=== PATIENT | female | born 1970 | race Caucasian/White ===

== ENCOUNTER 2016-11-14 09:59 | Inpatient (IN) ==
[2016-11-14] MEDS ORDERED: Aspirin 81 MG TAB.CHEW PO ONE (10:35)
[2016-11-14] MEDS ORDERED: Nitroglycerin 0.4 MG TAB.SUBL SL ONE (10:35)
--- NOTE | 2016-11-14 10:57 | Emergency Department Note ---
Disposition Clinical Impression: NSTEMI (non-ST elevated myocardial infarction) Disposition: Admitted As Inpatient Condition: Good General Adult HPI - General Stated complaint: Chest discomfort Time Seen by Provider: 11/14/16 10:05 Source: patient Limitations: no limitations Nursing Notes Reviewed: Yes Vital Signs Reviewed: Yes - History of Present Illness HPI Narrative: Patient here for evaluation of what she calls cardiac symptoms as these symptoms are previous to her previous heart attack that required 2 cardiac stents placed a year and a half ago by Dr. el. Patient states 2 days ago she began feeling fatigued. Yesterday the patient began experiencing some chest discomfort that she is unable to otherwise describe that is worse when she lays down. Patient has maxillary sinus pain that radiates throughout the jaw and lower neck. Patient has a positive family history of multiple family members having MIs in their early 40s as well as positive smoking history positive diabetes positive obesity positive hypertension positive hypercholesterolemia. Patient's most significant pain was last night prior to going to bed. Patient took 3 nitroglycerin over the course of an hour and a half that did relieve her pain to the point that she was able to sleep. Patient has continued pain at this point. Patient states her biggest problem last time was that she is stubborn and does not like to come in and waited too long before presenting. Pain Scale: 4 - Related Data Home Medications Medication Instructions Recorded Confirmed Alprazolam [Xanax 1 MG Tablet] 1 mg PO QID PRN 11/14/16 11/14/16 Aspirin 81 mg PO DAILY 11/14/16 11/14/16 Carvedilol [Coreg] 6.25 mg PO BID 11/14/16 11/14/16 Celecoxib [Celebrex] 200 mg PO DAILY 11/14/16 11/14/16 Clopidogrel [Plavix] 75 mg PO DAILY 11/14/16 11/14/16 Duloxetine [Cymbalta] 30 mg PO DAILY 11/14/16 11/14/16 Ergocalciferol (VITAMIN D2) 50,000 unit PO WE 11/14/16 11/14/16 [Vitamin D2] Fish Oil/Dha/Epa [Fish Oil 1,200 1 each PO DAILY 11/14/16 11/14/16 mg Fish Oil] Furosemide [Lasix] 20 mg PO DAILY 11/14/16 11/14/16 GlipiZIDE XL (24 HR) [Glucotrol XL] 5 mg PO 0800 11/14/16 11/14/16 LevETIRAcetam [Keppra Xr] 1,000 mg PO HS 11/14/16 11/14/16 Losartan [Cozaar] 25 mg PO DAILY 11/14/16 11/14/16 Nitroglycerin [Nitrostat] 0.4 mg SL Q5M PRN 11/14/16 11/14/16 Oxycodone HCl/Acetaminophen 1 each PO BID PRN 11/14/16 11/14/16 [Percocet 5-325 mg Tablet] Potassium Chloride [Klor-Con 10] 10 meq PO DAILY 11/14/16 11/14/16 Rosuvastatin [Crestor] 20 mg PO HS 11/14/16 11/14/16 Sertraline [Zoloft] 200 mg PO DAILY 11/14/16 11/14/16 Topiramate [Topamax] 200 mg PO QAM 11/14/16 11/14/16 Topiramate [Topamax] 400 mg PO QPM 11/14/16 11/14/16 Varenicline Tartrate [Chantix] 1 mg PO BID 11/14/16 11/14/16 Allergies Allergy/AdvReac Type Severity Reaction Status Date / Time atorvastatin [From Lipitor] Allergy See Verified 11/14/16 10:09 Comments doxycycline Allergy Rash Verified 06/20/15 15:48 lisinopril Allergy Cough Verified 06/20/15 15:49 Zolpidem [From Ambien] Allergy Rash Verified 06/20/15 15:47 All systems ED: reviewed and negative except as stated. Constitutional: Denies: fever, chills, weakness ENT ED: Reports: dental pain, congestion Cardiovascular: Reports: chest pain Respiratory: Reports: cough. Denies: dyspnea Gastrointestinal: Denies: abdominal pain, nausea Genitourinary: Denies: urgency, dysuria Musculoskeletal: Reports: back pain Integumentary: Denies: rash, abrasion Neurological: Denies: headache Psychiatric: Denies: anxiety, depression Endocrine: Denies: fatigue Hematological/Lymphatic: Denies: easy bleeding Past Medical History - Past Medical History Medical history: Reports: arthritis, CHF, coronary artery disease, diabetes, GERD, hyperlipidemia, hypertension, myocardial infarction, SVT, other Surgical history: Reports: angioplasty/stent Psychiatric history: Reports: no psych history - Social History Smoking Status: Current every day smoker Alcohol use: Reports: none Drug use: Reports: none Physical Exam - General Limitations: no limitations General appearance: alert, in no apparent distress - Head Head exam: atraumatic, normocephalic - Eye Eye exam: Present: normal appearance - ENT ENT exam: normal exam, normal oropharynx - Neck Neck exam: Present: normal inspection, full ROM. Absent: tenderness - Chest Chest inspection: Present: normal inspection, symmetric chest wall rise. Absent : tenderness - Respiratory Respiratory exam: Present: normal lung sounds bilaterally. Absent: respiratory distress, wheezes - Cardiovascular Cardiovascular exam: Present: regular rate, normal rhythm - Abdominal Exam Abdominal exam: Present: soft, Non-Tender - Extremities Exam Extremities exam: Present: normal inspection. Absent: tenderness, pedal edema - Back Exam Back exam: Present: normal inspection - Neurological Exam Neurological exam: Present: alert, oriented X3 - Psychiatric Psychiatric exam: Present: normal affect, normal mood - Skin Skin exam: Present: warm, dry, intact Course - Consultations Consultation #1: Discussed with cardiology. Patient admitted for an NSTEMI. Start heparin. They will see as a consult. Consultation #2: Discussed with hospitalist Dr. Santos. Patient excepted for admission. Vital Signs Temperature 97.9 F 11/14/16 10:06 Pulse Rate 94 11/14/16 10:06 Respiratory Rate 20 11/14/16 10:06 Blood Pressure 147/97 11/14/16 10:06 O2 Sat by Pulse Oximetry 99 11/14/16 10:06 Temperature 98.5 F 11/14/16 15:46 Pulse Rate 80 11/14/16 15:46 Respiratory Rate 16 11/14/16 15:46 Blood Pressure 102/62 11/14/16 15:46 O2 Sat by Pulse Oximetry 95 11/14/16 15:46 Oxygen Delivery Oxygen Delivery Room Air Medical Decision Making - Medical Records Medical records reviewed: Yes I reviewed the patient's medical records. - Lab Data Lab results reviewed: Yes I reviewed the patient's lab results. Result diagrams: 11/14/16 11:04 11/14/16 11:04 Lab Results 11/14/16 11/14/16 11/14/16 Range/Units 11:04 11:04 11:04 WBC 9.9 (4.3-11.1) K/mcL RBC 5.44 H (3.82-4.97) M/mcL Hgb 15.2 (11.5-15.4) g/dL Hct 43.7 (35.3-44.9) % MCV 80.3 L (83.0-100.0) fL MCH 27.9 L (28.0-33.3) pg MCHC 34.8 (31.6-35.5) g/dL RDW 14.1 (11.5-14.5) % Plt Count 229 (140-400) K/mcL MPV 9.5 (9.4-12.4) fL Immature Gran % 0.4 (0-4) % Seg Neutrophils % 67.4 % Lymphocytes % 25.2 % Monocytes % 4.3 % Eosinophils % 2.3 % Basophils % 0.4 % Neutrophils # 6.7 (1.6-8.9) K/mcL Lymphocytes # 2.5 (0.6-4.6) K/mcL Monocytes # 0.4 (0.0-1.3) K/mcL Eosinophils # 0.2 (0.0-0.6) K/mcL Basophils # 0.0 (0.0-0.2) K/mcL PT (9.4-12.1) Seconds INR APTT (26.0-36.0) Seconds Sodium 135 L (136-145) mEq/L Potassium 4.1 (3.5-4.5) mEq/L Chloride 103 (98-109) mEq/L Carbon Dioxide 20 (19-29) mEq/L BUN 11 (7-20) mg/dL Creatinine 0.73 (0.57-1.11) mg/dL Est GFR ( Amer) > 60 (> 60) Est GFR (Non-Af Amer) > 60 (> 60) BUN/Creatinine Ratio 15 (6-26) Glucose 292 H (70-99) mg/dL Calculated Osmolality 290 (280-300) Calcium 9.0 (8.6-10.8) mg/dL Troponin I 0.15 H* (0-0.03) ng/mL 11/14/16 Range/Units 11:04 WBC (4.3-11.1) K/mcL RBC (3.82-4.97) M/mcL Hgb (11.5-15.4) g/dL Hct (35.3-44.9) % MCV (83.0-100.0) fL MCH (28.0-33.3) pg MCHC (31.6-35.5) g/dL RDW (11.5-14.5) % Plt Count (140-400) K/mcL MPV (9.4-12.4) fL Immature Gran % (0-4) % Seg Neutrophils % % Lymphocytes % % Monocytes % % Eosinophils % % Basophils % % Neutrophils # (1.6-8.9) K/mcL Lymphocytes # (0.6-4.6) K/mcL Monocytes # (0.0-1.3) K/mcL Eosinophils # (0.0-0.6) K/mcL Basophils # (0.0-0.2) K/mcL PT 11.2 (9.4-12.1) Seconds INR 1.0 APTT 34.4 (26.0-36.0) Seconds Sodium (136-145) mEq/L Potassium (3.5-4.5) mEq/L Chloride (98-109) mEq/L Carbon Dioxide (19-29) mEq/L BUN (7-20) mg/dL Creatinine (0.57-1.11) mg/dL Est GFR ( Amer) (> 60) Est GFR (Non-Af Amer) (> 60) BUN/Creatinine Ratio (6-26) Glucose (70-99) mg/dL Calculated Osmolality (280-300) Calcium (8.6-10.8) mg/dL Troponin I (0-0.03) ng/mL - Radiology Data Radiology results reviewed: Yes I reviewed the patient's radiology results. - EKG Data EKG #1 EKG attestation: Yes I reviewed and interpreted this EKG. EKG results narrative: EKG shows sinus rhythm at a ventricular rate of 99 bpm. WA interval 162. QRS 82. QTC 391. Patient has no significant ST elevations or depressions. A significant Q waves present. T-wave inversion in V1. No significant changes from previous EKG of 05/16/15. EKG significantly improved with resolution of T wave inversions.
--- NOTE | 2016-11-14 10:58 | Emergency Department Note ---
START Narrative - START START: I examined this patient and my medical decision-making was reviewed with the PARER/PA/Advanced Practice Nurse/Resident Physician. I agree with the documented findings, disposition and treatment plan as described except to the extent set forth below. ED attending: Patient's emergency medicine resident Dr. Blackman. Please see copy of this note for H&P evaluation and management and ED disposition. We both had independent [id number]-[id number] time in contact with this patient. Briefly: A 46-year-old female 2 prior stents presents with chest pain. Last Was here a half ago. EKG ischemic changes. Patient troponin x-ray and other blood tests. Admission anticipated. Provided 35 minutes. SERVICE with this patient. Patient stable.
[2016-11-14 11:18] LABS: Basophils % 0.4 %; Eosinophils # 0.2 K/mcL (0.0-0.6); Eosinophils % 2.3 %; Hematocrit 43.7 % (35.3-44.9); Hemoglobin 15.2 g/dL (11.5-15.4); Immature Granulocytes % 0.4 % (0-4); Lymphocytes # 2.5 K/mcL (0.6-4.6); Lymphocytes % 25.2 %; Mean Corpuscular HGB Conc 34.8 g/dL (31.6-35.5); Mean Corpuscular Hemoglobin 27.9 pg (28.0-33.3); Mean Corpuscular Volume 80.3 fL (83.0-100.0); Mean Platelet Volume 9.5 fL (9.4-12.4); Monocytes # 0.4 K/mcL (0.0-1.3); Monocytes % 4.3 %; Neutrophils # 6.7 K/mcL (1.6-8.9); Platelet Count 229 K/mcL (140-400); Red Blood Count 5.44 M/mcL (3.82-4.97); Red Cell Distribution Width 14.1 % (11.5-14.5); Segmented Neutrophils % 67.4 %
[2016-11-14 11:29] LABS: BUN/Creatinine Ratio 15 (6-26); Blood Urea Nitrogen 11 mg/dL (7-20); Carbon Dioxide 20 mEq/L (19-29); Chloride 103 mEq/L (98-109); Glucose 292 mg/dL (70-99); Osmolality,Calculated 290 (280-300); Potassium 4.1 mEq/L (3.5-4.5); Sodium 135 mEq/L (136-145); eGFR For African Americans > 60 (> 60); eGFR For Non-African Americans > 60 (> 60)
[2016-11-14] MEDS ORDERED: *HR* Heparin 5,000 UNIT/ML VIAL IVP ONE (11:59)
[2016-11-14] MEDS ORDERED: *HR* Heparin 5,000 UNIT/ML VIAL IVP PRN ×2 (11:59)
[2016-11-14 12:18] LABS: Prothrombin Time 11.2 Seconds (9.4-12.1)
[2016-11-14 12:20] LABS: Activated Partial Thrombo Time 34.4 Seconds (26.0-36.0)
[2016-11-14] MEDS: Heparin 25,000 UNIT/500 ML D5W 25,000 UNIT/500 ML MLS IVC SCH (12:38)
--- NOTE | 2016-11-14 12:46 | Cardiology Consult Note ---
Date of Encounter: 11/14/16 Time of Encounter: 12:38 Assessment and Plan (1) Elevated troponin Current Visit: Yes Status: Acute - Patient with h/o CAD and stent placement a few years ago - Stress test 05/2015 showed fair exercise tolerance, generating 7 MET's, 63% of predicted heart rate without chest pain or ischemic changes - Echo 07/24/16 showed EF 60%, mild diastolic dysfunction - Reports compliance with medications - Pain has been ongoing for 1-2 weeks but increased in frequency over the past 2 days - Elevated troponin at 0.15 with no acute ischemic changes on EKG - Will admit to medicine - Trend troponins and optimize medical therapy - Started heparin gtt in ED - Will obtain repeat limited Echo - HEART Score 6 - Further recommendations to follow (2) Chest pain Current Visit: Yes Status: Acute - H/o CAD with stent x2 - Multiple comorbidities for CAD including h/o CAD, HTN, HLD, Fam hx, diabetes, obesity, smoking - Plan as above Qualifiers: Chest pain type: precordial pain Qualified Code(s): R07.2 - Precordial pain Discussion w patient/family: The assessment and plan as outlined above was discussed with the patient and/or family members who expressed understanding and agreement. All questions were answered. Thank you for involving us in the care of your patient. Please call with any questions. History of Present Illness Consult date: 11/14/16 Requesting physician: Saul Churchill Consult reason: Chest pain, elevated troponin Chief complaint: chest pain History of present illness: Ms. Dominguez is a 46 year old female who presents to the ED with the chief complaint of chest pain. Patient has a h/o CAD with stents x2 [address] George. Also has a h/o HTN, HLD, DM, arthritis, obesity, smoking, and family history of CAD. States that over the last 2 weeks she has been generally feeling unwell. Started with an abscessed tooth which she underwent root canal. She was having pain in her jaw in discomfort in her chest before the procedure but thought that her pain may have been related to the abscess. Reports she has been having to use her nitro more frequently to relieve her pain. Baseline is once or twice a month but has been using several times per week over the last 2 weeks. She started having retrosternal "discomfort" last night around 2300 and it did not go away like her normal chest pain. Reports it got better around 02: 30 this morning after 3 NTG. She took her granddaughter to school this morning then came to the ED. Reports the pain as intermittent over the last 2 weeks but more frequent in the last 48 hours, exertional but also occurring at rest, associated with fatigue, shortness of breath. Was radiating into both jaws and down her left arm the past 1-2 days. Better when sitting up or leaning forward and intolerable when she lays flat. Denies any fever, chills, changes in vision , diaphoresis, abdominal pain, n/v/d, pain or swelling in her legs. No history of DVT or PE. Patient self reports that she had an echo in June 2016 which showed EF 50% which was up from her original of 35%. Past Med Surg Social Fam HX - Past Medical History Medical history: arthritis, CHF, coronary artery disease, diabetes, GERD, hyperlipidemia, hypertension, myocardial infarction, SVT, other Psychiatric history: no psych history - Past Surgical History Surgical History: angioplasty/stent - Social History Smoking Status: Current every day smoker Alcohol use: none Drug use: none - Family History Mother Family Member Ethnicity: Non- Living Status: Still Living Hx Family Cardiac Disorders: No Hx Family Respiratory Disorders: No Hx Family Cancer: Yes (thyroid) Hx Family GI Disorders: No Hx Family Endocrine Disorder: No Hx Family Neuromuscular Disorders: No Hx Family Neurologic Disorders: No Hx Family HEENT Disorders: No Hx Family Autoimmune Disorders: No Medications and Allergies Alprazolam [Xanax 1 MG Tablet] 1 mg PO QID PRN 11/14/16 [History] Aspirin 81 mg PO DAILY 11/14/16 [History] Carvedilol [Coreg] 6.25 mg PO BID 11/14/16 [History] Celecoxib [Celebrex] 200 mg PO DAILY 11/14/16 [History] Clopidogrel [Plavix] 75 mg PO DAILY 11/14/16 [History] Duloxetine [Cymbalta] 30 mg PO DAILY 11/14/16 [History] Ergocalciferol (VITAMIN D2) [Vitamin D2] 50,000 unit PO WE 11/14/16 [History] Fish Oil/Dha/Epa [Fish Oil 1,200 mg Fish Oil] 1 each PO DAILY 11/14/16 [History] Furosemide [Lasix] 20 mg PO DAILY 11/14/16 [History] GlipiZIDE XL (24 HR) [Glucotrol XL] 5 mg PO 0800 11/14/16 [History] LevETIRAcetam [Keppra Xr] 1,000 mg PO HS 11/14/16 [History] Losartan [Cozaar] 25 mg PO DAILY 11/14/16 [History] Nitroglycerin [Nitrostat] 0.4 mg SL Q5M PRN 11/14/16 [History] Oxycodone HCl/Acetaminophen [Percocet 5-325 mg Tablet] 1 each PO BID PRN [History] Potassium Chloride [Klor-Con 10] 10 meq PO DAILY 11/14/16 [History] Rosuvastatin [Crestor] 20 mg PO HS 11/14/16 [History] Sertraline [Zoloft] 200 mg PO DAILY 11/14/16 [History] Topiramate [Topamax] 200 mg PO QAM 11/14/16 [History] Topiramate [Topamax] 400 mg PO QPM 11/14/16 [History] Varenicline Tartrate [Chantix] 1 mg PO BID 11/14/16 [History] Allergies atorvastatin [From Lipitor] Allergy (Verified 11/14/16 10:09) See Comments doxycycline Allergy (Verified 06/20/15 15:48) Rash lisinopril Allergy (Verified 06/20/15 15:49) Cough Zolpidem [From Ambien] Allergy (Verified 06/20/15 15:47) Rash All Systems Review: A 10-system review of systems was performed and is negative for pertinent findings except as documented above in the HPI. - Constitutional Constitutional: daytime sleepiness, fatigue, malaise, no night sweats, no weakness - EENT Eyes: no blurred vision - Cardiovascular Cardiovascular: chest pain at rest, chest pain with exertion, dyspnea at rest, dyspnea on exertion, radiating jaw, neck or arm pain, orthopnea, paroxysmal nocturnal dyspnea, no diaphoresis, no leg edema, no palpitations, no syncope - Respiratory Respiratory: dyspnea, no cough - Gastrointestinal Gastrointestinal: no coffee ground emesis, no diarrhea, no hematemesis, no nausea - Genitourinary Genitourinary: no dysuria - Musculoskeletal Musculoskeletal: arthralgias (chronic ), no abnormal gait, no back pain - Integumentary Integumentary: no rash - Neurological Neurological: no abnormal speech, no dizziness, no focal weakness, no loss of vision, no syncope - Hematological/Lymphatic Hematologic/Lymphatic: no easy bruising Physical Examination General: Conversant, No Apparent Distress HEENT: Atraumatic, Normocephaly, Mucus Membranes Moist Neck: No JVD, Normal carotid pulses Cardiac: Reg Rate and Rhythm, Normal S1 and S2, No Murmur Lungs: Normal Breath Sounds, No Wheeze, Rales, Rhonchi Neuro: Alert and responsive, No focal deficits noted Abdomen: Soft, Non-Tender Skin: No rashes noted on visualized skin Musculoskeletal: No Chest Wall Tenderness Extremities: No Clubbing, No Cyanosis, No Edema, Normal Pulses Results 11/14/16 11:04 11/14/16 11:04 - Imaging and Cardiology Chest Xray: report reviewed Echo: pending - EKG Interpretation EKG results cardiology: personally reviewed, no diagnostic ischemia Consult Discharge Plan - Plan Referrals: Francisco Dugan MD [Primary Care Provider] -
[2016-11-14] MEDS ORDERED: MOM Conc 10 ML UD.LIQ PO PRN (13:29)
[2016-11-14] MEDS ORDERED: Acetaminophen 325 MG TABLET PO PRN (13:29)
[2016-11-14] MEDS ORDERED: Ondansetron 4 MG/2 ML VIAL IVP PRN (13:29)
[2016-11-14] MEDS ORDERED: Mag Hydrox/Al Hydrox/Simeth 30 ML UDC PO PRN (13:29)
[2016-11-14] MEDS ORDERED: Naloxone 0.4 MG/ML INJ IVP PRN (13:29)
[2016-11-14] MEDS ORDERED: Nitroglycerin 0.4 MG TAB.SUBL SL PRN (13:32)
[2016-11-14] MEDS ORDERED: ALPRAZolam 1 MG TABLET PO PRN (13:32)
--- NOTE | 2016-11-14 13:50 | Internal Med History&Physical ---
Date of Encounter: 11/14/16 Time of Encounter: 13:00 Assessment and Plan (1) Elevated troponin Current visit: Yes Status: Acute Pts initial troponin 0.15 ng/dL. Pt started on heparin gtt in ED. Serial troponins Monitor labs Continuous cardiac monitoring Continuous pulse ox Continue heparin gtt (2) Chest pain Current visit: Yes Status: Acute Pt denies cp at this time, but c/o 4-5/10 maxillary sinus pain and rohith jaw pain that is consistent with the symptoms of her last MD. States that SL ntg in ED relieved CP. No acute changes on EKG. NSR, rate 99, MO int 162 ms, QRS 82ms. Same as above Ntg 0.4mg SL q5min x 3 prn Cardiac/diabetic diet Discussed smoking cessation Continue home medications Hold Plavix Qualifiers: Chest pain type: precordial pain Qualified Code(s): R07.2 - Precordial pain (3) Diabetes mellitus Current visit: Yes Status: Chronic Pt reports that her blood sugars at home have been anywhere from 120-180mg/dl 2 hours post-prandial. A1c 7.1% in Nov, 2015. A1c Diabetic/Cardiac diet Accucheck ac/hs Nutrition Insulin Sliding Scale insulin Qualifiers: Diabetes mellitus type: type 2 Diabetes mellitus complication status: without complication Qualified Code(s): E11.9 - Type 2 diabetes mellitus without complications Internal Medicine - H&P: HPI Admitted From: Home Plans for Post Hospital Care: Home History of present illness: Ms. Dominguez is a 46 year old female with history of CAD, HTN, DM, previous MD, hyperlipidemia, and 2 cardiac stents who presents to ED with 2 week history of mid-sternal chest pain with radiation to the back, jaw, maxillary sinus pain, and nausea. Over the last 2 days she reports feeling fatigued and sleeping more. Pain was relieved by ntg. Mid-sternal discomfort started last night around 2300 and did not go away, but was finally relieved by 3rd ntg, ASA, and her prescribed Xanax. Pt awakened with pain again today and went to ED. Past Med Surg Social Fam HX - Past Medical History Medical history: arthritis, CHF, coronary artery disease, diabetes, GERD, hyperlipidemia, hypertension, myocardial infarction, SVT, other Psychiatric history: no psych history - Past Surgical History Surgical History: angioplasty/stent - Social History Smoking Status: Current every day smoker Packs per day: 0.5 Alcohol use: none Drug use: none - Family History Father Cause of : MD Hx Family Cardiac Disorders: Yes Hx Family Medical Disorders: Yes Mother Family Member Ethnicity: Non- Living Status: Still Living Hx Family Cardiac Disorders: No Hx Family Respiratory Disorders: No Hx Family Cancer: Yes (thyroid) Hx Family GI Disorders: No Hx Family Endocrine Disorder: No Hx Family Neuromuscular Disorders: No Hx Family Neurologic Disorders: No Hx Family HEENT Disorders: No Hx Family Autoimmune Disorders: No Internal Medicine - H&P: Meds Alprazolam [Xanax 1 MG Tablet] 1 mg PO QID PRN 11/14/16 [History] Aspirin 81 mg PO DAILY 11/14/16 [History] Carvedilol [Coreg] 6.25 mg PO BID 11/14/16 [History] Celecoxib [Celebrex] 200 mg PO DAILY 11/14/16 [History] Clopidogrel [Plavix] 75 mg PO DAILY 11/14/16 [History] Duloxetine [Cymbalta] 30 mg PO DAILY 11/14/16 [History] Ergocalciferol (VITAMIN D2) [Vitamin D2] 50,000 unit PO WE 11/14/16 [History] Fish Oil/Dha/Epa [Fish Oil 1,200 mg Fish Oil] 1 each PO DAILY 11/14/16 [History] Furosemide [Lasix] 20 mg PO DAILY 11/14/16 [History] GlipiZIDE XL (24 HR) [Glucotrol XL] 5 mg PO 0800 11/14/16 [History] LevETIRAcetam [Keppra Xr] 1,000 mg PO HS 11/14/16 [History] Losartan [Cozaar] 25 mg PO DAILY 11/14/16 [History] Nitroglycerin [Nitrostat] 0.4 mg SL Q5M PRN 11/14/16 [History] Oxycodone HCl/Acetaminophen [Percocet 5-325 mg Tablet] 1 each PO BID PRN [History] Potassium Chloride [Klor-Con 10] 10 meq PO DAILY 11/14/16 [History] Rosuvastatin [Crestor] 20 mg PO HS 11/14/16 [History] Sertraline [Zoloft] 200 mg PO DAILY 11/14/16 [History] Topiramate [Topamax] 200 mg PO QAM 11/14/16 [History] Topiramate [Topamax] 400 mg PO QPM 11/14/16 [History] Varenicline Tartrate [Chantix] 1 mg PO BID 11/14/16 [History] Allergies atorvastatin [From Lipitor] Allergy (Verified 11/14/16 10:09) See Comments doxycycline Allergy (Verified 06/20/15 15:48) Rash lisinopril Allergy (Verified 06/20/15 15:49) Cough Zolpidem [From Ambien] Allergy (Verified 06/20/15 15:47) Rash All Systems PM: A 10-system review of systems was performed and is negative for pertinent findings except as documented above in the HPI. - Constitutional Constitutional: fatigue, no chills, no fever(s) - Cardiovascular Cardiovascular ROS IM: as per HPI, chest pain - Respiratory Respiratory: no cough, no dyspnea, no dyspnea on exertion, no chest congestion - Gastrointestinal Gastrointestinal: nausea, no abdominal pain, no diarrhea, no heartburn, no vomiting - Musculoskeletal Musculoskeletal ROS IM: no muscle weakness - Constitutional Vitals: Temp Pulse Resp BP Pulse Ox 98.3 F 111 18 127/86 98 11/14/16 13:24 11/14/16 13:24 11/14/16 13:24 11/14/16 13:24 11/14/16 13:24 General appearance: Present: A&O X 3, pleasant, no acute distress - Head Head exam: Present: normal inspection - ENT ENT exam: Present: mucous membranes moist, normal oropharynx Additional comments: Pt reports maxillary sinus pain with palpation. - Neck Neck exam general surgery: Absent: lymphadenopathy, tenderness, thyromegaly - Respiratory Respiratory exam: Present: CTAB. Absent: chest wall tenderness, rales, rhonchi , wheezes, tachypnea - Cardiovascular Cardiovascular exam: Present: RRR, +S2. Absent: diastolic murmur, JVD, systolic murmur, tachycardia - GI/Abdominal GI/Abdominal exam: Present: normal bowel sounds, soft. Absent: hepatomegaly, pulsatile mass, tenderness - Extremities Exam Extremities exam: Present: full ROM, normal capillary refill, pedal edema, radial pulses palpable and symetrical. Absent: tenderness Additional comments: Pt with +1 non-pitting pedal edema. Pt states is normal for her and denies worsening of this over the last 2 weeks. Rohith pedal pulses +2. - Neurological Exam Neurological exam: Present: alert, oriented X3, strengths equal and symetr throughout Internal Med - H&P Results - Labs CBC & Chem 7: 11/14/16 11:04 11/14/16 11:04
[2016-11-14] MEDS ORDERED: D5% in Water 1,000 ML IV PRN (13:57)
[2016-11-14] MEDS ORDERED: *HR* Dextrose 50 % in Water (Syg) 50 ML SYRINGE IVP PRN (13:57)
[2016-11-14] MEDS ORDERED: Dextrose Gel 15 GM PO PRN ×2 (13:57)
--- NOTE | 2016-11-14 14:35 | Electrocardiograph Report ---
[facility] Test Date: 2016-11-14 Pat Name: Kassie Dominguez Department: [id number] Room: 2A24 Gender: F [employer]: : 1970 Requested By: Slava Blackman Order Number: [id number] Reading MD: Rigoberto Burch MD Measurements Intervals [place] Rate: 99 P: 68 MN: 162 QRS: 100 QRSD: 82 T: 57 QT: 335 QTc: 391 Interpretive Statements SINUS RHYTHM BORDERLINE RIGHT AXIS DEVIATION Electronically Signed On 11-14-16 14:33:21 EST by Rigoberto Burch MD
[2016-11-14 15:13] LABS: Hemoglobin A1C 10.4 %
[2016-11-14] MEDS: Insulin LISPRO 300 UNITS/3 ML VIAL SQ SCH ×2 (17:06→17:07)
[2016-11-14] MEDS: Topiramate 100 MG TABLET PO SCH (17:07)
[2016-11-14] MEDS ORDERED: Heparin 1,000 UNITS/500 mL NS 500 ML ONE (19:03)
[2016-11-14] MEDS ORDERED: 0.9 % Sodium Chloride 1,000 ML ONE (19:03)
[2016-11-14] MEDS ORDERED: *HR* FentaNYL (PF) 250 MCG/5 ML VIAL ONE (19:03)
[2016-11-14] MEDS ORDERED: *HR* Midazolam HCl 5 MG/5 ML VIAL IVP ONE (19:03)
[2016-11-14] MEDS ORDERED: *HR* Heparin 10,000 UNIT/10 ML VIAL ONE (19:03)
[2016-11-14] MEDS ORDERED: Nitroglycerin 1,000 MCG/10 ML VIAL IV ONE (19:04)
[2016-11-14] MEDS ORDERED: LEVETIRACETAM 1000 MG PO SCH (21:00)
[2016-11-14] MEDS ORDERED: Insulin LISPRO 300 UNITS/3 ML VIAL SQ SCH (21:00)
--- NOTE | 2016-11-15 00:54 | ECHO - Doppler Report ---
Limited Echocardiogram Name: Kassie Dominguez Date of Study: 11/14/2016 Date: 1970 Ht: 66.0 in Medical Record#: [id number] Age: 46 Wt: 257.0 lb Gender: Female BSA: 2.23 Order #: [id number] Location: [facility] Room #: 2A24 Reading Physician: Abilio De Paz MD, [facility] Market Development Executive: Trista Haley RDCS Ordering Physician: Derek Joiner DO Primary Physician: Francisco Dugan MD Indications: Chest pain, Elevated Troponin Impressions: Normal left ventricular size and systolic function, LVEF 55-60%. Normal right ventricular size and function. Valvular function was not assessed on this limited study. Left Ventricular Wall Motion: Rest Echo Findings All wall segments showed normal motion. Findings: Study Quality * Suboptimal echo windows. ECG Findings * Normal sinus rhythm. Left Ventricle * Normal left ventricular size and systolic function, LVEF 55-60%. * Normal LV wall thickness. Right Ventricle * Normal right ventricular size and function. Left Atrium * Normal left atrial size. Right Atrium * Normal right atrial size. Aorta * Normally sized aortic root. Pericardium * There is no pericardial effusion present. History Hypertension Diabetes Hypercholesteremia History of CAD/PTCA Myocardial Infarction Congestive Heart Failure 07/24/2016 a Previous Echo was performed. Measurements: BP: 102/ 62 2D Normal Values RVIDd: 3.10 cm IVSd: .90 cm 0.6 - 1.0 cm LVIDd: 5.00 cm 3.7 - 5.6 cm LVPWd: .80 cm 0.6 - 1.1 cm LVIDs: 3.20 cm 1.5 - 3.6 cm AO: 3.00 cm < 4.0 cm Updated by Abilio De Paz MD, [facility] on 11/15/2016 12:45:23 AM electronically signed on 11/15/2016 12:49:59 AM with status of Final Wall Motion Metz: 1=Normal, 2=Hypokinesis, 3=Akinesis, 4=Dyskinesis, 5=Aneurysmal, 6=Hyperkinetic, X=Not Visualized (Blank)=Missing
[2016-11-15 01:30] LABS: Basophils # 0.1 K/mcL (0.0-0.2); Basophils % 0.6 %; Eosinophils # 0.3 K/mcL (0.0-0.6); Eosinophils % 2.5 %; Hematocrit 41.1 % (35.3-44.9); Immature Granulocytes % 0.6 % (0-4); Immature Platelets 3.3 % (1.1-6.1); Lymphocytes % 37.2 %; Mean Corpuscular HGB Conc 34.1 g/dL (31.6-35.5); Mean Corpuscular Hemoglobin 27.5 pg (28.0-33.3); Mean Corpuscular Volume 80.6 fL (83.0-100.0); Mean Platelet Volume 9.7 fL (9.4-12.4); Monocytes # 0.6 K/mcL (0.0-1.3); Monocytes % 5.2 %; Neutrophils # 5.9 K/mcL (1.6-8.9); Platelet Count 243 K/mcL (140-400); Segmented Neutrophils % 53.9 %
[2016-11-15 01:45] LABS: BUN/Creatinine Ratio 17 (6-26); Blood Urea Nitrogen 14 mg/dL (7-20); Carbon Dioxide 22 mEq/L (19-29); Chloride 104 mEq/L (98-109); Glucose 268 mg/dL (70-99); Osmolality,Calculated 292 (280-300); Potassium 3.8 mEq/L (3.5-4.5); Sodium 136 mEq/L (136-145); eGFR For African Americans > 60 (> 60); eGFR For Non-African Americans > 60 (> 60)
[2016-11-15] MEDS: Heparin 25,000 UNIT/500 ML D5W 25,000 UNIT/500 ML MLS IVC SCH (05:36)
[2016-11-15] MEDS: Insulin LISPRO 300 UNITS/3 ML VIAL SQ SCH ×6 (08:06→15:54)
[2016-11-15] MEDS: Topiramate 100 MG TABLET PO SCH ×2 (08:08→18:21)
[2016-11-15] MEDS: Aspirin 81 MG TAB.CHEW PO SCH (08:08)
[2016-11-15] MEDS: Furosemide 20 MG TABLET PO SCH (08:08)
--- NOTE | 2016-11-15 08:22 | Cardiology Progress Note ---
Date of Encounter: 11/15/16 Time of Encounter: 08:20 Assessment and Plan (1) Elevated troponin Current Visit: Yes Status: Acute - Troponin has trended down, 0.15, 0.11, 0.08 - Echo showed normal function with EF 55-60% - Planned C today - Continue optimized medical therapy - Further recommendations pending heart cath (2) Chest pain Current Visit: Yes Status: Acute - Planned heart cath today - plan as above Qualifiers: Chest pain type: precordial pain Qualified Code(s): R07.2 - Precordial pain Discussion w patient/family: The assessment and plan as outlined above was discussed with the patient and/or family members who expressed understanding and agreement. All questions were answered. Thank you for involving us in the care of your patient. Please call with any questions. Subjective Principal diagnosis: Chest pain, elevated troponin Interval history: No acute issues overnight. Objective Vital Signs, Last 4 Hours Temp Pulse Resp BP Pulse Ox 11/15/16 07:32 97.6 F 74 16 146/93 94 L General: Conversant, No Apparent Distress HEENT: Atraumatic, Normocephaly, Mucus Membranes Moist Neck: No JVD, Normal carotid pulses Cardiac: Reg Rate and Rhythm, Normal S1 and S2, No Murmur Lungs: Normal Breath Sounds, No Wheeze, Rales, Rhonchi Neuro: Alert and responsive, No focal deficits noted Abdomen: Soft, Non-Tender Skin: No rashes noted on visualized skin Musculoskeletal: No Chest Wall Tenderness Extremities: No Clubbing, No Cyanosis, No Edema, Normal Pulses Results 11/15/16 01:04 11/15/16 01:04 Lab Results 11/14/16 11/14/16 11/15/16 17:59 17:59 01:04 WBC Hgb Hct Plt Count APTT 46.5 H Sodium Potassium Chloride Carbon Dioxide BUN Creatinine Glucose Calcium Troponin I 0.11 H* 0.08 H* 11/15/16 11/15/16 11/15/16 01:04 01:04 01:04 WBC 10.8 Hgb 14.0 Hct 41.1 Plt Count 243 APTT 75.5 H D Sodium 136 Potassium 3.8 Chloride 104 Carbon Dioxide 22 BUN 14 Creatinine 0.81 Glucose 268 H Calcium 9.0 Troponin I - Imaging and Cardiology Echo: report reviewed (normal limited echo, EF 55-60%) Consult Discharge Plan - Plan Referrals: Francisco Dugan MD [Primary Care Provider] -
[2016-11-15] MEDS: *HR* HYDROcodone/Acet 5/325 mg TABLET PO PRN ×2 (08:27→13:48)
[2016-11-15] MEDS ORDERED: (Fish Oil/Dha/Epa [Fish Oil 1,200 Mg Fish Oil] 1 EACH) PO SCH (09:00)
[2016-11-15] MEDS ORDERED: Heparin 1,000 UNITS/500 mL NS 500 ML ONE ×2 (10:04→12:14)
[2016-11-15] MEDS ORDERED: 0.9 % Sodium Chloride 1,000 ML ONE ×3 (10:04→12:14)
[2016-11-15] MEDS ORDERED: Nitroglycerin 1,000 MCG/10 ML VIAL IV ONE ×2 (10:05→12:15)
[2016-11-15] MEDS ORDERED: *HR* Heparin 10,000 UNIT/10 ML VIAL ONE ×2 (10:05→12:15)
[2016-11-15] MEDS ORDERED: D5% in Water 1,000 ML IV PRN (10:15)
[2016-11-15] MEDS ORDERED: Dextrose Gel 15 GM PO PRN ×2 (10:15)
[2016-11-15] MEDS ORDERED: *HR* Dextrose 50 % in Water (Syg) 50 ML SYRINGE IVP PRN (10:15)
--- NOTE | 2016-11-15 10:24 | Pre-Sedation Evaluation ---
Pre-sedation evaluation - Pre-sedation checklist Date of procedure: 11/15/16 Procedure: [facility] Recent Vitals: Last Vital Signs Temp 97.6 F 11/15/16 07:32 Pulse 74 11/15/16 07:32 Resp 16 11/15/16 07:32 BP 146/93 11/15/16 07:32 Pulse Ox 94 L 11/15/16 08:35 H&P (including ROS) documented in medical record: Yes Previous reaction to sedatives/anesthetics: No Dietary Status: NPO after Midnight Airway Assessment: Patient can open mouth completely, TMJ function normal, Micrognathia (under-bite, receding chin) absent, Neck with adequate range of motion Dentition: No loose teeth or bridges Possible difficult airway: No ASA Classification *see protocol: CLASS II-Mild systemic disease Plan of Care: Pt appropriate candidate for procedure/moderate/conscious sedation , Risks/benefits of procedure/sedation discussed w/ patient/family
[2016-11-15] MEDS ORDERED: *HR* FentaNYL (PF) 100 MCG/2 ML VIAL ONE ×3 (10:27→12:38)
[2016-11-15] MEDS ORDERED: *HR* Midazolam HCl 2 MG/2 ML VIAL ONE ×2 (10:27→12:37)
[2016-11-15] MEDS ORDERED: *HR* Bivalirudin 250 MG VIAL IVC ONE (12:45)
--- NOTE | 2016-11-15 13:28 | Invasive Diagnostic Lab Proc ---
Name: Kassie Dominguez Date of Study: 11/15/2016 Date: 1970 Ht: 66.1in Medical Record#: [id number] Age: 46 Wt: 257.94lb Gender: Female BSA: 2.23 Order #: [id number] BMI: 41.45 Physicians Procedure Physician: Ginger Hunt MD, [facility] Referring MD: Referring MD: Staff Name Position Time In Jazmin Chamorro RN Wool Puller 10:31 AM Shaye Juarez RT (R) Scrub 10:31 AM Adia Mojica RN Monitor 10:31 AM Minna Mcbride RT (R) Scrub 12:41 PM Indications Indication Non-Stemi Procedures Performed Procedure L HRT ARTERY/VENTRICLE ANGIO PRQ CARD PRICILLA STENT W/ANGIO 1 VSL Pre-Procedure Checklist Informed consent is complete signed and on chart. H\\T\\P is on chart. ID band is on and ID verified with patient. Pt not NPO for procedure and MD aware. The procedure was described for the patient and questions were answered. Blood Pressure: 118/79 ECG is on chart. Rhythm: NSR Plan of Care Patient will tolerate the procedure without complications. Adequate level of comfort will be maintained. Hemodynamics will remain stable Patient will recover from procedure without complications. Respiratory function will be maintained. Cardiac rhythm will remain stable. Patient temperature will be maintained. Patient and/or family have verbalized understanding of the procedure. Patient Education Chief Complaint/Reason for Test: Cardiac Cath Developmental Category: Adult (18-64 years) Developmentally Appropriate for Age: Yes Learning Barriers: None Education Needs: Procedure Education Method: Verbal Information Taught: Cardiac Cath Educational Evaluation: Able to repeat information Intravenous Access Time IV Size Location DC'd Fluid/Drip Rate Units RN 07:17 PM 18g 1 10/30" Patent On Arrival Lt Antecubital 0.9NaCl 25 ml/hr Jazmin Chamorro RN Allergies lisinopril atorvastatin Zolpidem doxycycline Vital Signs Time BP (mmHg) HR (bpm) O2 Sat. RR (bpm) LOC 08:49 AM 146 / 93 74 94 % 16 5 = Fully awake and oriented or at pre-proc level 10:33 AM / % 5 = Fully awake and oriented or at pre-proc level 10:33 AM / % 5 = Fully awake and oriented or at pre-proc level 10:33 AM 131 / 76 64 97 % 10:39 AM 141 / 81 67 97 % 10:43 AM 137 / 77 62 99 % 19 10:48 AM 140 / 75 67 98 % 10:53 AM 137 / 104 70 98 % 28 11:00 AM 130 / 67 65 96 % 18 5 = Fully awake and oriented or at pre-proc level 11:15 AM 135 / 88 67 97 % 18 5 = Fully awake and oriented or at pre-proc level 11:30 AM 117 / 79 69 96 % 16 5 = Fully awake and oriented or at pre-proc level 11:45 AM 127 / 75 71 96 % 18 5 = Fully awake and oriented or at pre-proc level 12:00 PM 127 / 75 66 93 % 16 5 = Fully awake and oriented or at pre-proc level 12:16 PM 118 / 83 66 94 % 16 5 = Fully awake and oriented or at pre-proc level 12:30 PM 126 / 81 66 94 % 16 5 = Fully awake and oriented or at pre-proc level Procedural Medications Time Medication Dose Units Method Given By 10:32 AM Oxygen 2 L/min nasal cannula Jazmin Chamorro RN 10:34 AM Versed 2 mg Intravenous Jazmin Chamorro RN 10:34 AM Fentanyl 50 mcg Intravenous Jazmin Chamorro RN 10:42 AM Lidocaine 2% 18 ml Subcutaneous Ginger Hunt MD, FACC 11:34 AM Fentanyl 25 mcg Intravenous Vladimir Marin RN 12:42 PM Versed 2 mg Intravenous Jazmin Chamorro RN 12:42 PM Fentanyl 50 mcg Intravenous Jazmin Chamorro RN 12:48 PM Angiomax 0.75mg/kg bolus: 17 ml Intravenous Jazmin Chamorro RN 12:49 PM Angiomax 1.75mg/kg/hr: 40 ml Intravenous Jazmin Chamorro RN 12:59 PM Nitroglycerin 200 mcg Intracoronary Ginger Hunt MD, FACC 01:06 PM Plavix 600 mg Orally Jazmin Chamorro RN ASA Classification: CLASS II- Mild systemic disease (i.e. well-controlled diabetes, hypertension, asthma, cigarette smoking) Krista Score Preprocedure Postprocedure Activity 2- Moves 4 extremities sustained head lift Activity 2- Moves 4 extremities sustained head lift Circulation 2- SBP +/= 20 points of pre-anesthetic level Circulation 2- SBP +/= 20 points of pre-anesthetic level Consciousness 2- Awake and alert oriented x 3 Consciousness 2- Awake and alert oriented x 3 O2 Saturation 2- Able to maintain O2 satruation of 92% on room air O2 Saturation 2- Able to maintain O2 satruation of 92% on room air Respiratory 2- Able to deep breathe and cough well Respiratory 2- Able to deep breathe and cough well Total Score 10 Total Score 10 Contrast Agent: Isovue Diagnostic Contrast: 94 ml Total Contrast: 94 ml Fluoro Dose: 738 mGy Procedure Log Time Note Enter By 07:17 PM CathStat 10:31 AM Pt arrived to dental laboratory technician apprentice 2 at 10:31 [email or web address] 10:31 AM Jazmin Chamorro RN Position: Wool Puller [facility]: 10:31 [email or web address] 10[facility] AM Shaye Juarez RT (R) Position: Scrub Time in: 10:31 [email or web address] 10:31 AM Adia Mojica RN Position: Monitor Time in: 10:31 [email or web address] 10:31 AM Patient charges- Angio tray pack, Navilyst 3mm J, Pulse Oximetry and ACIST tubing and transducer [email or web address] 10:31 AM Case Delayed No [email or web address] 10:31 AM Hair removed from procedure site in procedure lab using clippers. Bilateral groin prepped with Chloraprep by Adia Mojica RN then patient draped. Skin intact. [email or web address] 10:31 AM Physician arrived 10:31 [email or web address] 10:31 AM ASA Class CLASS II- Mild systemic disease (i.e. well-controlled diabetes, hypertension, asthma, cigarette smoking) [email or web address] 10:32 AM Meet and greet completed [email or web address] 10:32 AM Sign in performed according to hospital policy. [email or web address] 10:32 AM Procedure start 10:32 [email or web address] 10:32 AM Case Start 10:32 AM Vitals capture started with the following parameters, Patient=Adult, Interval=5 min, Initial Gcrxtorh=116 mmHg, Deflation Rate=5 mmHg, Cuff placed on Right Arm 10:33 AM Time: 10:32 Oxygen on at 2 L/min per nasal cannula by Jazmin Chamorro RN [email or web address] 10:33 AM Time: 10:33 Patient comfortable and pain free: Yes [email or web address] 10:33 AM Time: 10:33LOC: 5 = Fully awake and oriented or at pre-proc level [email or web address] 10:33 AM Clinical Presentation: Non-STEMI [email or web address] 10:33 AM HR=64 bpm, RHSQ=839/76 mmhg, SpO2=97.0 %, Comment=SR 10:34 AM Recorded ECG: HR=63 Condition=Condition 1 10:34 AM Time: 10:34 Versed 2 mg Intravenous Given by Jazmin Chamorro RN [email or web address] 10:35 AM Time: 10:34 Fentanyl 50 mcg Intravenous Given by Jazmin Chamorro RN [email or web address] 10:39 AM HR=67 bpm, MKGP=689/81 mmhg, SpO2=97.0 %, Comment=SR 10:39 AM Pressure channel 1 zeroed. 10:42 AM Time out performed according to hospital policy [email or web address] 10:43 AM HR=62 bpm, XBUV=256/77 mmhg, SpO2=99.0 %, Resp=19 B/min, Comment=SR 10:44 AM Time: 10:42 18 ml Lidocaine 2% to right groin Subcutaneous Given by Ginger Hunt MD, [email or web address] 10[facility]46 AM Access obtained by percutaneous puncture. 5Fr 10cm Terumo Sullivan sheath placed in right Femoral artery. [id number] [email or web address] 10:47 AM 5Fr FL 4 catheter [facility] the [email or web address] 10:47 AM 0.035 145cm Navilyst 3mmJ wire [id number] [email or web address] 10:47 AM LCA angiography performed in multiple views. [email or web address] 10:47 AM Recorded Pressure: Ao, HR=66, Condition=Condition 1 (Aorta) Ao 123/90/105 10:48 AM Time: 10:33LOC: 5 = Fully awake and oriented or at pre-proc level [email or web address] 10:48 AM Time: 10:33 Patient comfortable and pain free: Yes [email or web address] 10:48 AM HR=67 bpm, DZEX=624/75 mmhg, SpO2=98.0 %, Comment=SR 10:48 AM Catheter removed [email or web address] 10:49 AM 5Fr FR 4 catheter inserted over the wire [facility] [email or web address] 10:50 AM RCA angiography performed in multiple views. [email or web address] 10:50 AM Recorded Pressure: Ao, HR=69, Condition=Condition 1 (Aorta) Ao 125/95/110 10:50 AM Coronary Dominance: right [email or web address] 10:51 AM Catheter removed [email or web address] 10:51 AM 5Fr Pigtail catheter inserted over the wire DNC [email or web address] 10:51 AM Pressure channel 1 zeroed. 10:52 AM Catheter selectively placed in left ventricle [email or web address] 10:53 AM HR=70 bpm, CYYF=350/104 mmhg, SpO2=98.0 %, Resp=28 B/min, Comment=SR 10:53 AM Recorded Pressure: LV, HR=67, Condition=Condition 1 (Left Ventricle) LV 95/19/25 10:53 AM Recorded Pressure: LV, Ao, HR=59, Condition=Condition 1 (Left Ventricle) LV 109/27/50, (Aorta) Ao 101/68/87 10:54 AM Bolus angiogram of left Ventricle complete: 8 ml/sec for a total of 24 mls [email or web address] 10:54 AM Catheter removed [email or web address] 10:54 AM Bolus angiogram of left Femoral complete: 4 ml/sec for a total of 7 mls [email or web address] 10:54 AM Pt will need PCI of LAD, sheath attached to transducer with Hep Saline. Pt taken to holding room in order to accommodate STEMI [email or web address] 10:56 AM Procedure completed at 10:56 [email or web address] 10:57 AM Sign out completed: Radiation Dose 311.99 mGy Fluoro Time: 1.7 Isovue 370 - 200ml contrast 64 ml given by Ginger Hunt MD, [facility]. Complications: NoneCardiac Rehab Consult needed: YesConfirmed administered medications: Yes [email or web address] 10:58 AM Report given to Dari GIFFORD Pt taken to Holding room Room #2. 10:58 [email or web address] 11:[address] Hunt informed patient c/o lower back pain 06/05. Will give fentanyl 25mg mprater 12:04 PM pt given an update by katlin RN and James Leonardo RN [email or web address] 12:30 PM patient taken back to procedure lab [email or web address] 12:41 PM pt back to laboratory mechanic helper 2 at this time [email or web address] 12:41 PM Minna Mcbride RT (R) Position: Scrub Time in: 12:41 [email or web address] 12:42 PM Time: 12:42 Versed 2 mg Intravenous Given by Jazmin Chamorro RN [email or web address] 12:42 PM Time: 12:42 Fentanyl 50 mcg Intravenous Given by Jazmin Chamorro RN [email or web address] 12:43 PM Lesion found in MID LAD. Pre Stenosis: 80 Pre JAM Flow: [email or web address] 12:43 PM PCI Status Urgent [email or web address] 12:43 PM PCI Indication: PCI for high risk Non-STEMI or unstable angina [email or web address] 12:44 PM PCI lesion in Proximal LAD. [email or web address] 12:45 PM Sheath exchanged for a 6 Fr 11 cm Terumo Sullivan sheath [id number] [email or web address] 12:48 PM Time: 12:48 Angiomax 0.75mg/kg bolus: 17 ml Intravenous Given by Jazmin Chamorro RN Goff pump [email or web address] 12:49 PM Time: 12:49 Angiomax 1.75mg/kg/hr: 40 ml Intravenous Given by Jazmin Chamorro RN Goff pump [email or web address] 12:50 PM .014 Prowater 180cm guide wire across target lesion- successful. reused? No [email or web address] 12:50 PM 6Fr XB LAD 3.5 Cordis guide catheter was used to cannulate the PCI vessel successfully. reused? No [email or web address] 12:50 PM Inflation device was opened. [email or web address] 12:52 PM 2.0 mm x 12 mm Emerge Monorail balloon across target lesion- successful. reused? No [email or web address] 12:54 PM Balloon inflated @ 8 gelacio for 20 seconds [email or web address] 12:54 PM Balloon catheter removed intact. [email or web address] 12:55 PM 2.5mm x 16mm Promus Premier Rx drug-eluting stent across target lesion- successful Lot [id number] [email or web address] 12:57 PM Stent deployed @ 12 gelacio for 30 seconds [email or web address] 12:58 PM Stent balloon reinflated @ 18 gelacio for 15 seconds [email or web address] 12:58 PM Stent delivery system removed intact. [email or web address] 12:59 PM Time: 12:59 Nitroglycerin 200 mcg Intracoronary Given by Ginger Hunt MD, [facility] [email or web address] 01:01 PM 2.5 mm x 12mm NC Emerge balloon across target lesion- successful. reused? No [email or web address] 01:02 PM Balloon inflated @ 20 gelacio for 20 seconds [email or web address] 01:03 PM Balloon inflated @ 20 gelacio for 15 seconds [email or web address] 01:03 PM Balloon catheter removed intact. [email or web address] 01:05 PM Bolus angiogram of left Femoral complete: 4 ml/sec for a total of 7 mls [email or web address] 01:05 PM Procedure completed at 10:56 [email or web address] 01:05 PM Sign out completed: Radiation Dose 738.39 mGy Fluoro Time: 1.7 Isovue 370 - 200ml contrast 94 ml given by Ginger Hunt MD, [facility]. Complications: NoneCardiac Rehab Consult needed: YesConfirmed administered medications: Yes [email or web address] 01:05 PM Isovue 370 - 200ml,1 Bottle(s) used. [email or web address] 01:06 PM Time: 13:06 Plavix 600 mg Orally Given by Jazmin Chamorro RN [email or web address] 01:09 PM Lesion found in Proximal RCA. Pre Stenosis: 30 Pre JAM Flow: [email or web address] 01:10 PM Lesion found in Proximal Circumflex. Pre Stenosis: 30 Pre JAM Flow: [email or web address] 01:10 PM Mid/Distal Left Anterior Descending Coronary Artery and diagonal branches with 90% stenosis. If graft is supplying this area, % stenosis [email or web address] 01:10 PM Circumflex, Obtuse Marginal, Left Posterior Descending, and Left Posterolateral Coronary Arteries with 30 % stenosis. If graft is supplying this area, % stenosis [email or web address] 01:10 PM Right Coronary, Right Posterior Descending Arteries with Right Posterolateral and Acute Marginal branches with 30 % stenosis. If graft is supplying this area, % stenosis [email or web address] 01:10 PM angiomax gtt off [email or web address] 01:11 PM Sheath left in place to be pulled on floor/holding areaV+Pad [email or web address] 01:11 PM Post ECG NSR [email or web address] 01:11 PM Post Blood Pressure 110/86 [email or web address] 01:11 PM 13:11 Post Pulses Bilateral DP 2+ [email or web address] 01:11 PM Information taught Cardiac Cath and PCI [email or web address] 01:12 PM Education needs Procedure, Plan of Care, and Responsibilities of Patient in Care [email or web address] 01:12 PM Learning barriers :None [email or web address] 01:12 PM Education Methods Verbal [email or web address] 01:12 PM Education evaluation Able to repeat information [email or web address] 01:12 PM Site status No bleeding/hematoma - Rt Groin as reported by Minna Mcbride RT (R) at 13:12 [email or web address] 01:12 PM Opsite applied [email or web address] 01:12 PM Plavix, Effient or Brilinta given Yes [email or web address] 01:12 PM Delay to floor No [email or web address] 01:12 PM Patient out of room: 13:12 [email or web address] 01:12 PM Family placed in consult room. [email or web address] 01:20 PM Report given to Trista GIFFORD Pt taken to 2N Room #11. 13:20 [email or web address] Complications Complication None None Hemodynamics Pressures Site Systolic/A Wave Diastolic/V Wave Mean AO 123 90 105 AO 125 95 110 LV 95 19 25 LV 109 27 50 AO 101 68 87 Post Procedure Information Blood Pressure: 110/86 mmHg Rhythm: NSR Post procedural instructions were given Closure Device Time Device Success/Fail Site Checks Time Location Status Staff Sheath In? Note 11:00 AM Rt Groin No bleeding/ No Hematoma Valdimir Marin RN Yes 11:15 AM Rt Groin No bleeding/ No Hematoma Vladimir Marin RN Yes 11:30 AM Rt Groin No bleeding/ No Hematoma Dari Leonardo RN Yes 11:45 AM Rt Groin No bleeding/ No Hematoma Vladimir Marin RN Yes 12:00 PM Rt Groin No bleeding/ No Hematoma Adia Mojica RN Yes 12:15 PM Rt Groin No bleeding/ No Hematoma Adia Mojica RN Yes 12:30 PM Rt Groin No bleeding/ No Hematoma Shaye Juarez RT (R) Yes 01:12 PM Rt Groin No bleeding/hematoma Minna cMbride RT (R) Pulses Time Site Pre-Procedure Post-Procedure Note 11/15/2016 8:48:00 AM Bilateral DP 2+ 11/15/2016 8:48:00 AM Bilateral radial 2+ 11/15/2016 11:15:00 AM Bilateral DP 2+ 11/15/2016 11:30:00 AM Bilateral DP 2+ 11/15/2016 12:00:00 PM Bilateral DP 2+ 11/15/2016 12:16:00 PM Bilateral DP 2+ 11/15/2016 12:30:00 PM Bilateral DP 2+ 1:11:00 PM Bilateral DP 2+ Updated by Adia Mojica RN on 11/15/2016 1:24:15 PM electronically signed on 11/15/2016 1:24:51 PM with status of Final
[2016-11-15] MEDS ORDERED: 0.9 % Sodium Chloride 1,000 ML IVC SCH (13:30)
--- NOTE | 2016-11-15 15:08 | Invasive Diagnostic Lab ---
Name: Kassie Dominguez Date of Study: 11/15/2016 Date: 1970 Ht: 168.0 cm /66.1 in Medical Record#: [id number] Age: 46 Wt: 117. kg / 257.94 lb Account/Order#: [id number] Gender: Female BSA: 2.23 Order #: [id number] Fluoro Dose: 738 mGy BMI: 41.45 Procedure Physician: Ginger Hunt MD, [facility] Referring MD: Referring MD: Procedures Performed: LEFT HEART CATH Stent w/ PTCA Single Major Vessel Indications: Non-Stemi Impressions: Single vessel coronary artery disease. The left ventricle is normal and has normal contractility EF 60% Previously stented proximal LAD stent patent. Patient had successful PTCA/Drug-Eluting Stent placement in the mid LAD. Recommendations: Optimal medical therapy of patient's disease. Aggressive risk factor modification. Plavix (Clopidogrel) 75 mg PO Daily. History/Risk Factors: CAD obesity SVT CHF GERD Diabetes Hypertension Dyslipidemia CHF within 2 weeks Current/Recent Smoker Family History of CAD Prior AR Previous PCI Procedure Access obtained in the right Femoral artery by percutaneous puncture Patient had successful PTCA/Drug-Eluting Stent placement in the mid LAD. Complications: None Contrast: Isovue 94ml Hemodynamics: Pressures Site Systolic/ A Wave Diastolic/ V Wave End Diastolic/ Mean HR AO 123 90 105 66 AO 125 95 110 69 LV 95 19 25 67 LV 109 27 50 46 AO 101 68 87 71 LV Ventriculography Ejection Method: LV Gram Ejection Fraction: 60% Wall Motion: ADAMS Anterobasal Normal Anterolateral Normal Apical: Normal Inferoapical Normal Inferobasal Normal Coronary Dominance: right Lesion Findings/Interventions * Left Main Coronary Artery The LMCA is angiographically free of disease. * Left Anterior Descending The Proximal LAD has patent stents present from a previous procedure. There is a 16 mm long, 90% in stent re-stenosis in the Mid LAD. The lesion has no thrombus present. An intervention was performed on the Mid LAD with a final stenosis of 0%. There were no lesion complications. The final JAM flow was 3. * Circumflex There is a 30% stenosis in the Proximal Circumflex. * Right Coronary Artery There is a 30% stenosis in the Proximal RCA. Interventional Device(s) Vessel Segment Type Name Diameter (mm) Length (mm) Mid LAD Balloon Emerge Monorail 2 12 Mid LAD Drug Eluting Stent Promus Premier Rx 2.5 16 Mid LAD Balloon NC Emerge 2.5 12 Updated by Adia Mojica RN on 11/15/2016 1:19:44 PM Ginger Hunt MD, FACC electronically signed on 11/15/2016 3:03:32 PM with status of Final
[2016-11-15] MEDS ORDERED: *HR* Atropine Sulfate 1 MG/ML VIAL ONE (15:10)
--- NOTE | 2016-11-15 15:43 | Internal Med Progress Note ---
Date of Encounter: 11/15/16 Time of Encounter: 15:41 - Assessment and plan (1) NSTEMI (non-ST elevated myocardial infarction) Current Visit: Yes Status: Acute Assessment and plan: Patient presented with chest pain with slightly elevated troponin, concerning for non-ST elevated [place]. Patient received IV heparin drip for anticoagulation along with aspirin, Plavix, beta leonel and statin. Cardiology has been consulted and patient underwent left heart catheterization today, noted to have stenting of in-stent restenosis. We will follow-up full cardiology recommendations. Off anticoagulation; (2) Diabetes mellitus Current Visit: Yes Status: Chronic Assessment and plan: Noted to have uncontrolled diabetes with hemoglobin A1c 10.4%. Patient reports well controlled blood sugars at home and attributes her current hyperglycemia to cardiac issues. Start basal insulin and increase sliding scale insulin. Diabetic diet. tobacco prevention health educator consult. Continue Accu-Chek blood glucose monitoring. Patient will probably need to be discharged home with insulin. Qualifiers: Diabetes mellitus type: type 2 Diabetes mellitus complication status: with hyperglycemia Diabetes mellitus chcf insulin use: without middle or intermediate school principal use Qualified Code(s): E11.65 - Type 2 diabetes mellitus with hyperglycemia (3) Coronary artery disease Current Visit: Yes Status: Chronic Assessment and plan: Continue dual antiplatelet therapy, beta leonel and statin. Qualifiers: Coronary Disease-Associated Artery/Lesion type: [place] artery [place] vs. transplanted heart: [place] heart Associated angina: without angina Qualified Code(s): I25.10 - Atherosclerotic heart disease of [place] coronary artery without angina pectoris (4) Essential hypertension Current Visit: Yes Status: Chronic (5) Bipolar disorder Current Visit: Yes Status: Chronic Assessment and plan: Resume home medications. Qualifiers: Active/Remission status: remission status unspecified Qualified Code(s): F31.9 - Bipolar disorder, unspecified (6) Hyperlipidemia Current Visit: Yes Status: Chronic Qualifiers: Hyperlipidemia type: mixed hyperlipidemia Qualified Code(s): E78.2 - Mixed hyperlipidemia (7) Tobacco abuse Current Visit: Yes Status: Chronic - Subjective Interval history: Patient is just back after left heart catheterization, he received a stent. Reports slight discomfort in the right groin but no ongoing chest pain, shortness of breath, palpitations. - Constitutional Vitals: Temp Pulse Resp BP Pulse Ox 97.6 F 70 20 118/84 97 11/15/16 07:32 11/15/16 15:30 11/15/16 13:50 11/15/16 15:30 11/15/16 15:30 General appearance: Present: A&O X 3, answers questions appropriately - Head Head exam: Present: atraumatic, normocephalic - Neck Neck exam general surgery: Present: supple, trachea midline. Absent: lymphadenopathy - Respiratory Respiratory exam: Present: CTAB (Anterolaterally). Absent: accessory muscle use , rales, rhonchi, wheezes - Cardiovascular Cardiovascular exam: Present: RRR, +S1, +S2. Absent: diastolic murmur, gallop, rubs, systolic murmur - GI/Abdominal GI/Abdominal exam: Present: normal bowel sounds, soft (Obese), no peritoneal signs. Absent: distended, tenderness - Extremities Exam Extremities exam: Present: full ROM, warm, radial pulses palpable and symetrical. Absent: calf tenderness, cyanotic, pedal edema - Neurological Exam Neurological exam: Present: CN II-XII intact, oriented X3, no focal deficits. Absent: pronater drift, facial droop, speech deficit - Skin Skin exam: Present: dry, intact Internal Medicine: Result - Labs CBC & Chem 7: 11/15/16 01:04 11/15/16 01:04 - ABG Interpretation ABG results: PT/INR, D-dimer PT 11.2 Seconds (9.4-12.1) 11/14/16 11:04 Consult Discharge Plan - Plan Referrals: Francisco Dugan MD [Primary Care Provider] - 11/21/16 1:15 pm Cuong Tam CNP [Advanced Practice Nurse] - 12/04/16 1:30 pm
[2016-11-15] MEDS ORDERED: Insulin LISPRO 300 UNITS/3 ML VIAL SQ SCH (21:00)
[2016-11-15] MEDS: levETIRAcetam 250 MG TABLET PO SCH (21:09)
[2016-11-15] MEDS: Insulin DETEMIR 100 UNIT/ML X5UNITS SQ SCH (21:09)
[2016-11-16 04:40] LABS: Basophils % 0.4 %; Eosinophils # 0.3 K/mcL (0.0-0.6); Eosinophils % 2.6 %; Hematocrit 40.6 % (35.3-44.9); Hemoglobin 13.5 g/dL (11.5-15.4); Immature Granulocytes % 0.3 % (0-4); Lymphocytes # 2.2 K/mcL (0.6-4.6); Lymphocytes % 23.5 %; Mean Corpuscular HGB Conc 33.3 g/dL (31.6-35.5); Mean Corpuscular Hemoglobin 27.2 pg (28.0-33.3); Mean Corpuscular Volume 81.7 fL (83.0-100.0); Mean Platelet Volume 9.5 fL (9.4-12.4); Monocytes # 0.4 K/mcL (0.0-1.3); Monocytes % 4.6 %; Neutrophils # 6.5 K/mcL (1.6-8.9); Platelet Count 205 K/mcL (140-400); Red Blood Count 4.97 M/mcL (3.82-4.97); Red Cell Distribution Width 14.3 % (11.5-14.5); Segmented Neutrophils % 68.6 %
[2016-11-16 04:55] LABS: BUN/Creatinine Ratio 14 (6-26); Blood Urea Nitrogen 11 mg/dL (7-20); Calcium 8.8 mg/dL (8.6-10.8); Carbon Dioxide 20 mEq/L (19-29); Chloride 108 mEq/L (98-109); Glucose 213 mg/dL (70-99); Osmolality,Calculated 290 (280-300); Sodium 137 mEq/L (136-145); eGFR For African Americans > 60 (> 60); eGFR For Non-African Americans > 60 (> 60)
--- NOTE | 2016-11-16 07:59 | Cardiology Progress Note ---
Date of Encounter: 11/16/16 Time of Encounter: 07:10 Assessment and Plan (1) NSTEMI (non-ST elevated myocardial infarction) Current Visit: Yes Status: Acute NSTEMI s/p PCI. Cardiac rehab consultation placed. [facility] 11/15/16: patent pLAD stent, successful PTCA/PRICILLA to mLAD stenosis; otherwise mild, non-obstructive CAD. (30% pLCx, 30% pRCA). TTE 11/15/16: EF 55-60%, normal wall motion. (Limited study). No issues overnight, right groin cath site stable--no hematoma, oozing, or ecchymosis noted at site. Labs, vital signs, and telemetry have been stable. Post PCI discharge instructions discussed including activity restrictions, care of site, and importance of uninterrupted DAPT (asa + plavix) for at least 1 year. Continue asa, statin, betablocker, diuretic, and ARB. Risk factor modification emphasized including improved glycemic control, tobacco cessation, heart healthy diet, and daily exercise. Follow-up with [facility] as scheduled, Cardiology will sign-off, please call with questions. (2) Diabetes mellitus Current Visit: Yes Status: Chronic Emphasized importance of tight glycemic control. Qualifiers: Diabetes mellitus type: type 2 Diabetes mellitus complication status: with hyperglycemia Diabetes mellitus prison insulin use: without terminal clerk use Qualified Code(s): E11.65 - Type 2 diabetes mellitus with hyperglycemia (3) Tobacco abuse Current Visit: Yes Status: Chronic Smoking cessation counseling provided. Discussion w patient/family: The assessment and plan as outlined above was discussed with the patient and/or family members who expressed understanding and agreement. All questions were answered. Thank you for involving us in the care of your patient. Please call with any questions. The patient was discussed and reviewed with Dr. Patel; Cardiology will sign- off, please call with questions. Subjective Principal diagnosis: Chest pain, elevated troponin Interval history: Seen and examined. Headache overnight--resolved with Tylenol. No issues with right groin cath site. Objective Vital Signs, Last 4 Hours Temp Pulse Resp BP Pulse Ox 11/16/16 07:17 97.5 F L 63 16 124/76 93 L General: Conversant, No Apparent Distress HEENT: Atraumatic, Normocephaly, Mucus Membranes Moist Cardiac: Reg Rate and Rhythm, Normal S1 and S2 Lungs: Normal Breath Sounds, No Wheeze, Rales, Rhonchi Neuro: Alert and responsive, No focal deficits noted Abdomen: Soft, Non-Tender Skin: No rashes noted on visualized skin Musculoskeletal: No Chest Wall Tenderness Extremities: No Edema, Normal Pulses Results 11/16/16 04:18 11/16/16 04:18 Lab Results 11/16/16 11/16/16 04:18 04:18 WBC 9.5 Hgb 13.5 Hct 40.6 Plt Count 205 Sodium 137 Potassium 4.0 Chloride 108 Carbon Dioxide 20 BUN 11 Creatinine 0.76 Glucose 213 H Calcium 8.8 Active Medications Acetaminophen (Tylenol) 650 mg PO Q6HR PRN PRN Reason: Mild Pain (1-3) Stop: 05/16/17 13:30 Last Admin: 11/16/16 03:51 Dose: 650 mg Acetaminophen/Hydrocodone Bitart ([place] 5-325 Mg) 1 tab PO Q4HR PRN PRN Reason: Moderate Pain (4-6) Stop: 05/16/17 13:30 Last Admin: 11/15/16 13:48 Dose: 1 tab Al Hydrox/Mg Hydrox/Simethicone (Maalox) 15 ml PO Q6HR PRN PRN Reason: Dyspepsia Stop: 05/16/17 13:30 Alprazolam (Xanax) 1 mg PO QID PRN; Protocol PRN Reason: Anxiety Stop: 05/16/17 13:33 Last Admin: 11/14/16 15:00 Dose: 1 mg Aspirin (Aspirin) 81 mg PO DAILY [facility] Stop: 05/17/17 09:01 Last Admin: 11/15/16 08:08 Dose: 81 mg Carvedilol (Coreg) 6.25 mg PO BIDWM [facility] PRN Reason: Protocol Stop: 05/17/17 17:01 Last Admin: 11/15/16 18:20 Dose: 6.25 mg Clopidogrel Bisulfate (Plavix) 75 mg PO DAILY [facility] Stop: 05/18/17 09:01 Docusate Sodium (Colace) 100 mg PO BID PRN PRN Reason: Constipation Stop: 05/16/17 13:30 Duloxetine HCl (Cymbalta) 30 mg PO DAILY [facility] Stop: 05/17/17 09:01 Last Admin: 11/15/16 08:09 Dose: 30 mg Ergocalciferol (Drisdol (50,000 Unit)) 50,000 unit PO WE [facility] Stop: 05/22/17 13:33 Furosemide (Lasix) 20 mg PO DAILY [facility] Stop: 05/17/17 09:01 Last Admin: 11/15/16 08:08 Dose: 20 mg Insulin Detemir (Levemir) 15 unit SQ BID [facility] Stop: 05/17/17 21:01 Last Admin: 11/15/16 21:09 Dose: 15 unit Insulin Human Lispro (Humalog) 10 units 0.08 units/kg (10 units) SQ TIDWM [facility] Stop: 05/16/17 17:01 Last Admin: 11/15/16 15:54 Dose: 10 units Insulin Human Lispro (Humalog) 0 units SQ TIDAC [facility] PRN Reason: Protocol Stop: 05/17/17 11:31 Last Admin: 11/15/16 15:54 Dose: 6 units Insulin Human Lispro (Humalog) 0 units SQ HS [facility] PRN Reason: Protocol Stop: 05/17/17 21:01 Last Admin: 11/15/16 21:09 Dose: Not Given Levetiracetam (Keppra) 750 mg PO BID [facility] Stop: 05/17/17 21:01 Last Admin: 11/15/16 21:09 Dose: 750 mg Losartan Potassium (Cozaar) 25 mg PO DAILY [facility] PRN Reason: Protocol Stop: 05/17/17 09:01 Last Admin: 11/15/16 08:33 Dose: 25 mg Magnesium Hydroxide (Milk Of Magnesia Conc) 10 ml PO DAILY PRN PRN Reason: Indigestion Stop: 05/16/17 13:30 Naloxone HCl (Narcan) 0.4 mg IVP Q2MIN PRN PRN Reason: Opioid Reversal Stop: 05/16/17 13:30 Nitroglycerin (Nitroglycerin) 0.4 mg SL Q5M PRN PRN Reason: Chest Pain Stop: 05/16/17 13:33 Omeprazole (Prilosec) 20 mg PO DAILY@0630 [facility] PRN Reason: Protocol Stop: 05/17/17 06:31 Last Admin: 11/16/16 05:29 Dose: 20 mg Ondansetron HCl (Zofran) 4 mg IVP Q8HR PRN PRN Reason: Nausea And Vomiting Stop: 05/16/17 13:30 Potassium Chloride (Potassium Chloride) 10 meq PO DAILY [facility] Stop: 05/17/17 09:01 Last Admin: 11/15/16 08:09 Dose: 10 meq Rosuvastatin Calcium (Crestor) 20 mg PO HS [facility] Stop: 05/16/17 21:01 Last Admin: 11/15/16 21:09 Dose: 20 mg Sertraline HCl (Zoloft) 200 mg PO DAILY [facility] Stop: 05/17/17 09:01 Last Admin: 11/15/16 08:08 Dose: 200 mg Topiramate (Topamax) 200 mg PO QAM [facility] Stop: 05/17/17 09:01 Last Admin: 11/15/16 08:08 Dose: 200 mg Topiramate (Topamax) 400 mg PO QPM [facility] Stop: 05/16/17 18:01 Last Admin: 11/15/16 18:21 Dose: 400 mg - Imaging and Cardiology Echo: report reviewed Cardiac cath: report reviewed Other Results: 12 hour tele: avg HR=65 SR. No significant event overnight. - EKG Interpretation EKG results cardiology: personally reviewed Consult Discharge Plan - Plan Additional Instructions: RISK FACTORS: STOP SMOKING: If you smoke, STOP. Smoking or tobacco use significantly increases your risk of heart disease because nicotine causes the arteries to narrow or constrict. It also causes fats to stick to the artery. Your chances of having a heart attack are greatly increased if you continue to smoke. For more information, call the education line for smoking cessation 6-893-KWNQEUR EAT A LOW FAT/CHOLESTEROL/SODIUM DIET: This diet may help reduce your chances of having a heart attack. LIFTING: Avoid lifting anything more than 10 pounds for 5-7 days Prior to straining, laughing, sneezing and/or coughing, apply manual pressure directly over insertion site. ACTIVITY: You may walk or climb stairs as tolerated You can resume sexual activity as tolerated In general, you are encouraged to engage in a minimum of 30 minutes or more of moderate intensity physical activity, such as brisk walking, daily or at least 3 -4 times weekly BATHING Do not submerge the site into water (bath tub, hot tub, swimming pool) for 1 week. This can be a source for infection into the blood stream. You may shower after 24 hours SITE CARE: After 24 hours, you may remove the dressing and leave the site open to air. Keep the site clean and dry. Clean gently and pat dry. You can expect bruising and tenderness that gradually resolve within a week or two. Return to work as instructed per your physician Resume driving as instructed per physician Keep all scheduled follow up appointments Resume medications as instructed IMPORTANT: If prescribed a Platelet Aggregation Inhibitor such as, Plavix, Brilinta or Effient: Duration of therapy is minimum one year These medications are often used in combination with Aspirin in prevention of future heart attacks Never discontinue unless consult with your Movable Bulkhead Installer STROKE (CVA) Risk factors for a stroke are: Age, cigarette smoking, diabetes, excessive alcohol consumption, family history, high blood pressure, overweight, physical inactivity, prior stroke, heart attack, diagnosis of carotid artery stenosis or other artery disease. Warning signs: Sudden numbness or weakness of the face, arm or leg; especially on one side of the body, sudden confusion, trouble speaking or understanding, sudden trouble seeing in one or both eyes, sudden trouble walking, dizziness, loss of balance or coordination, sudden severe headache with no cause. Call 911 or go to the Emergency Room. CONGESTIVE HEART FAILURE: If you have been diagnosed with Congestive Heart Failure (CHF) and your symptoms return, make an appointment with your physician Weigh yourself daily. Notify your physician if you have a weight gain of two or more pounds in one day or five or more pounds in one week. If you experience any difficulty breathing, please call 911 BLEEDING: Although the risk of bleeding is minimal, it can happen. If you have any bleeding from the site, apply firm pressure above the puncture site for 10-15 minutes. If the bleeding does not stop, continue manual pressure and call 911 Contact your physician if: You develop a fever greater than 101 degrees Fahrenheit Your site becomes reddened or has any drainage You have an increase in pain or burning at the site or if a large knot forms at the site. If you experience chest pain, shortness of breath, dizziness, or extreme tiredness, stop the activity and rest. Please notify your physicians office if you experience any of these symptoms and they are not relieved by rest please call 911! Referrals: Francisco Dugan MD [Primary Care Provider] - 11/21/16 1:15 pm Cuong Tam CNP [Advanced Practice Nurse] - 12/04/16 1:30 pm
[2016-11-16] MEDS: Topiramate 100 MG TABLET PO SCH (08:00)
[2016-11-16] MEDS: Insulin LISPRO 300 UNITS/3 ML VIAL SQ SCH ×4 (08:01→12:03)
[2016-11-16] MEDS: Aspirin 81 MG TAB.CHEW PO SCH (08:01)
[2016-11-16] MEDS: Furosemide 20 MG TABLET PO SCH (08:01)
[2016-11-16] MEDS: levETIRAcetam 250 MG TABLET PO SCH (08:01)
[2016-11-16] MEDS: Insulin DETEMIR 100 UNIT/ML X5UNITS SQ SCH (08:01)
[2016-11-16 11:21] VITALS: BP 131/64
--- NOTE | 2016-11-16 14:19 | Discharge Summary ---
Date of Encounter: 11/16/16 Time of Encounter: 14:16 - Discharge Diagnosis (1) NSTEMI (non-ST elevated myocardial infarction) Priority: Primary Status: Acute (2) Diabetes mellitus Priority: Secondary Status: Chronic Qualifiers: Diabetes mellitus type: type 2 Diabetes mellitus complication status: with hyperglycemia Diabetes mellitus custodial insulin use: without lobsterman use Qualified Code(s): E11.65 - Type 2 diabetes mellitus with hyperglycemia (3) Coronary artery disease Priority: Secondary Status: Chronic Qualifiers: Coronary Disease-Associated Artery/Lesion type: [place] artery [place] vs. transplanted heart: [place] heart Associated angina: without angina Qualified Code(s): I25.10 - Atherosclerotic heart disease of [place] coronary artery without angina pectoris (4) Essential hypertension Priority: Secondary Status: Chronic (5) Bipolar disorder Priority: Secondary Status: Chronic Qualifiers: Active/Remission status: remission status unspecified Qualified Code(s): F31.9 - Bipolar disorder, unspecified (6) Hyperlipidemia Priority: Secondary Status: Chronic Qualifiers: Hyperlipidemia type: mixed hyperlipidemia Qualified Code(s): E78.2 - Mixed hyperlipidemia (7) Tobacco abuse Priority: Secondary Status: Chronic - Discharge Medications Home Medications: Alprazolam [Xanax 1 MG Tablet] 1 mg PO QID PRN 11/14/16 [History] Aspirin 81 mg PO DAILY 11/14/16 [History] Carvedilol [Coreg] 6.25 mg PO BID 11/14/16 [History] Celecoxib [Celebrex] 200 mg PO DAILY 11/14/16 [History] Clopidogrel [Plavix] 75 mg PO DAILY 11/14/16 [History] Duloxetine [Cymbalta] 30 mg PO DAILY 11/14/16 [History] Ergocalciferol (VITAMIN D2) [Vitamin D2] 50,000 unit PO WE 11/14/16 [History] Fish Oil/Dha/Epa [Fish Oil 1,200 mg Fish Oil] 1 each PO DAILY 11/14/16 [History] Furosemide [Lasix] 20 mg PO DAILY 11/14/16 [History] GlipiZIDE XL (24 HR) [Glucotrol XL] 5 mg PO 0800 11/14/16 [History] LevETIRAcetam [Keppra Xr] 1,000 mg PO HS 11/14/16 [History] Losartan [Cozaar] 25 mg PO DAILY 11/14/16 [History] Nitroglycerin [Nitrostat] 0.4 mg SL Q5M PRN 11/14/16 [History] Oxycodone HCl/Acetaminophen [Percocet 5-325 mg Tablet] 1 each PO BID PRN [History] Potassium Chloride [Klor-Con 10] 10 meq PO DAILY 11/14/16 [History] Rosuvastatin [Crestor] 20 mg PO HS 11/14/16 [History] Sertraline [Zoloft] 200 mg PO DAILY 11/14/16 [History] Topiramate [Topamax] 200 mg PO QAM 11/14/16 [History] Topiramate [Topamax] 400 mg PO QPM 11/14/16 [History] Varenicline Tartrate [Chantix] 1 mg PO BID 11/14/16 [History] Allergies/Adverse Reactions: Allergies atorvastatin [From Lipitor] Allergy (Verified 11/14/16 10:09) See Comments doxycycline Allergy (Verified 06/20/15 15:48) Rash lisinopril Allergy (Verified 06/20/15 15:49) Cough Zolpidem [From Ambien] Allergy (Verified 06/20/15 15:47) Rash Procedures/tests Complete & Pending: Procedures Performed prior 72 hours Category Date Time Status ECG 12 lead ECG [ECG] Stat Y 11/15/16 13:20 Ordered Date of admission: 11/15/16 10:57 Primary care physician: Francisco Dugan MD Consults: 11/15/16 13:20 Consult to Cardiac Rehabilitation-Phase1 [CONS] Routine Comment: Reason for Consult: post op cath Call Completed: Yes 11/15/16 15:34 Consult to Direct Chill Casting Operator [CONS] Stat Comment: Discharging clinician: Veda Ramires Anticipated date of discharge: 11/16/16 - Patient Status Disposition: Home, Self-Care Condition: Good Functional capacity at discharge: independent ambulation Overall status at discharge: patient is back to baseline - Discharge Instructions Instructions: Myocardial Infarction (DC), Left Heart Catheterization (DC), What is Insulin (DC), Giving an Insulin Injection (DC), Pen Devices for Insulin Administration (DC) Follow Up With: Francisco Dugan MD [Primary Care Provider] - 11/21/16 1:15 pm Cuong Tam CNP [Advanced Practice Nurse] - 12/04/16 1:30 pm Forms: ED Satisfaction Letter Additional Instructions: RISK FACTORS: STOP SMOKING: If you smoke, STOP. Smoking or tobacco use significantly increases your risk of heart disease because nicotine causes the arteries to narrow or constrict. It also causes fats to stick to the artery. Your chances of having a heart attack are greatly increased if you continue to smoke. For more information, call the education line for smoking cessation 1-765-XKXVOZA EAT A LOW FAT/CHOLESTEROL/SODIUM DIET: This diet may help reduce your chances of having a heart attack. LIFTING: Avoid lifting anything more than 10 pounds for 5-7 days Prior to straining, laughing, sneezing and/or coughing, apply manual pressure directly over insertion site. ACTIVITY: You may walk or climb stairs as tolerated You can resume sexual activity as tolerated In general, you are encouraged to engage in a minimum of 30 minutes or more of moderate intensity physical activity, such as brisk walking, daily or at least 3 -4 times weekly BATHING Do not submerge the site into water (bath tub, hot tub, swimming pool) for 1 week. This can be a source for infection into the blood stream. You may shower after 24 hours SITE CARE: After 24 hours, you may remove the dressing and leave the site open to air. Keep the site clean and dry. Clean gently and pat dry. You can expect bruising and tenderness that gradually resolve within a week or two. Return to work as instructed per your physician Resume driving as instructed per physician Keep all scheduled follow up appointments Resume medications as instructed IMPORTANT: If prescribed a Platelet Aggregation Inhibitor such as, Plavix, Brilinta or Effient: Duration of therapy is minimum one year These medications are often used in combination with Aspirin in prevention of future heart attacks Never discontinue unless consult with your Home Assessment Nurse STROKE (CVA) Risk factors for a stroke are: Age, cigarette smoking, diabetes, excessive alcohol consumption, family history, high blood pressure, overweight, physical inactivity, prior stroke, heart attack, diagnosis of carotid artery stenosis or other artery disease. Warning signs: Sudden numbness or weakness of the face, arm or leg; especially on one side of the body, sudden confusion, trouble speaking or understanding, sudden trouble seeing in one or both eyes, sudden trouble walking, dizziness, loss of balance or coordination, sudden severe headache with no cause. Call 911 or go to the Emergency Room. CONGESTIVE HEART FAILURE: If you have been diagnosed with Congestive Heart Failure (CHF) and your symptoms return, make an appointment with your physician Weigh yourself daily. Notify your physician if you have a weight gain of two or more pounds in one day or five or more pounds in one week. If you experience any difficulty breathing, please call 911 BLEEDING: Although the risk of bleeding is minimal, it can happen. If you have any bleeding from the site, apply firm pressure above the puncture site for 10-15 minutes. If the bleeding does not stop, continue manual pressure and call 911 Contact your physician if: You develop a fever greater than 101 degrees Fahrenheit Your site becomes reddened or has any drainage You have an increase in pain or burning at the site or if a large knot forms at the site. If you experience chest pain, shortness of breath, dizziness, or extreme tiredness, stop the activity and rest. Please notify your physicians office if you experience any of these symptoms and they are not relieved by rest please call 911! - FOLLOW A CARDIAC DIABETIC DIET. - ENCOURAGE FLUID INTAKE FOR 24 HOURS AFTER HEART CATH. - FOLLOW UP WITH YOUR PCP REGARDING YOUR BLOOD SUGARS AND POSSIBLE NEED FOR INSULIN. IT WOULD BE GOOD TO KEEP A LOG OF YOUR BLOOD SUGARS AND TAKE IT TO YOUR FOLLOW UP APPOINTMENTS. - KEEP YOUR STENT CARD WITH YOU AT ALL TIMES. - Diet and Activity Activity: resume usual activities as tolerated Diet: diabetic diet, low fat, low cholesterol, low salt diet Hospital course: Ms. Dominguez is a 46 year old female with the above medical problems who was admitted with chest pain and shortness of breath. She was noted to be having non-ST elevation [place] with troponin elevation. Cardiology has been consulted. She was started on IV heparin drip along with aspirin, Plavix, beta leonel, statin. She underwent left heart catheterization and received 1 drug-eluting stent for in-stent restenosis of LAD. Her hospital course was complicated with hypoglycemia due to uncontrolled diabetes and her hemoglobin A1c was noted to be 10.4%. Her blood sugars were well controlled on insulin while in the hospital. This has been explained to her and she has been encouraged to be discharged on long-acting insulin along with her sulfonylurea that she takes at home. However, she refuses to be on insulin at this time as she has never been on insulin and she believes her hyperglycemia is due to her current stress from heart attack and her blood sugars at home are usually in the low 100s according to her. She would like to discuss diabetes regimen with her primary care provider before being started on insulin. She is otherwise medically stable for discharge. Time spent discussing smoking cessation with patient: 3 to 10 minutes - Time Spent with Patient Total time spent providing and/or coordinating discharge services: Greater than 30 minutes (45 min) - Constitutional Vitals: Temp Pulse Resp BP Pulse Ox 98.5 F 60 16 131/64 94 L 11/16/16 11:19 11/16/16 12:11 11/16/16 11:19 11/16/16 11:19 11/16/16 11:19 General appearance: Present: A&O X 3, morbidly obese, answers questions appropriately - Respiratory Respiratory exam: Present: CTAB. Absent: accessory muscle use, rales, rhonchi, wheezes - Cardiovascular Cardiovascular exam: Present: RRR, +S1, +S2. Absent: diastolic murmur, gallop, rubs, systolic murmur
--- NOTE | 2016-11-18 09:26 | Electrocardiograph Report ---
[facility] Test Date: 2016-11-15 Pat Name: Kassie Dominguez Department: 110 Room: 2N11 Gender: F Steel Fitter: : 1970 Requested By: Ginger Hunt Order Number: [id number] Reading MD: Garrett Patel DO Measurements Intervals [place] Rate: 68 P: 69 PA: 187 QRS: 85 QRSD: 91 T: 58 QT: 416 QTc: 433 Interpretive Statements SINUS RHYTHM Electronically Signed On 11-18-16 09:25:55 EST by Garrett Patel DO
== END 2016-11-16 14:57 | disposition home or self-care (01) | DRG 247 ==
LOC: 2ANU 09:59 → EMEROO 09:59 → 2ANU 12:55 → 2NNU 11-15 13:37
PROVIDERS: ADMIT Internal Medicine; ATTEND Internal Medicine

== ENCOUNTER 2017-02-19 11:48 | Observation (INO) ==
--- NOTE | 2017-02-19 12:24 | Emergency Department Note ---
Disposition Clinical Impression: Hyperlipidemia, Coronary artery disease, Essential hypertension, Chest pain, Diabetes mellitus, Tobacco abuse, Obesity Disposition: Admitted As Inpatient Referrals: NO,PCP [Non-Partnered Physician] - Forms: ED Satisfaction Letter General Adult HPI - General Chief complaint: ED Chest Pain Stated complaint: chest pain Time Seen by Provider: 02/19/17 12:14 Source: patient Limitations: no limitations - History of Present Illness HPI Narrative: 47-year-old female with history of known coronary disease status post cardiac stent placement most recently in October 2016 reports emergency department concerns with chest pain. She was at cardiac rehabilitation today, she was doing exercises that she is accustomed to and does not usually have chest pain associated with these, she developed chest pain which radiated into the face or jaws. She went to see her primary care physician who recommended she come to the ED based on her symptomatology. The patient became diaphoretic and nauseated. There is no history of shira shortness of breath like swelling or pain cough coughing up blood or syncope. No abdominal pain vomiting or diarrhea. The patient has had no back pain. She has no personal history of DVT or PE. The patient takes aspirin and clopidogrel. She is not having chest pain in the ED. She reports the pain he was experiencing was like her previous coronary syndrome. Pain Scale: 4 - Related Data Home Medications Medication Instructions Recorded Confirmed RX: Alprazolam [Xanax 1 MG Tablet] 1 mg PO QID PRN 11/14/16 02/19/17 RX: Aspirin 81 mg PO DAILY 11/14/16 02/19/17 RX: Carvedilol [Coreg] 6.25 mg PO BID 11/14/16 02/19/17 RX: Clopidogrel [Plavix] 75 mg PO DAILY 11/14/16 02/19/17 RX: Duloxetine [Cymbalta] 30 mg PO DAILY 11/14/16 02/19/17 RX: Ergocalciferol (VITAMIN D2) 50,000 unit PO SA 11/14/16 02/19/17 [Vitamin D2] RX: Fish Oil/Dha/Epa [Fish Oil 1,200 mg PO DAILY 11/14/16 02/19/17 1,200 mg Fish Oil] RX: Furosemide [Lasix] 20 mg PO DAILY 11/14/16 02/19/17 RX: GlipiZIDE XL (24 HR) 5 mg PO QAM 11/14/16 02/19/17 [Glucotrol XL] RX: LevETIRAcetam [Keppra Xr] 1,000 mg PO HS 11/14/16 02/19/17 RX: Losartan [Cozaar] 25 mg PO DAILY 11/14/16 02/19/17 RX: Nitroglycerin [Nitrostat] 0.4 mg SL Q5M PRN 11/14/16 02/19/17 RX: Oxycodone HCl/Acetaminophen 1 tab PO BID PRN 11/14/16 02/19/17 [Percocet 5-325 mg Tablet] RX: Potassium Chloride [Klor-Con 10 meq PO DAILY 11/14/16 02/19/17 10] RX: Rosuvastatin [Crestor] 20 mg PO HS 11/14/16 02/19/17 RX: Sertraline [Zoloft] 100 mg PO BID 11/14/16 02/19/17 RX: Topiramate [Topamax] 200 mg PO TID 11/14/16 02/19/17 Sitagliptin Phosphate [Januvia] 50 mg PO DAILY 01/09/17 02/19/17 Isosorbide MONOnitrate (24 HR) 30 mg PO DAILY 02/19/17 02/19/17 [Imdur] Allergies Allergy/AdvReac Type Severity Reaction Status Date / Time Zolpidem [From Ambien] Allergy Severe Fainting Verified 01/09/17 09:52 atorvastatin [From Lipitor] Allergy Diarrhea Verified 01/09/17 09:52 doxycycline Allergy Rash Verified 06/20/15 15:48 lisinopril Allergy Cough Verified 06/20/15 15:49 metformin Allergy Rash Verified 01/09/17 09:52 Past Medical History - Past Medical History Medical history: Reports: arthritis, CHF, coronary artery disease, diabetes, fibromyalgia, GERD, hyperlipidemia, hypertension, myocardial infarction, SVT, other Surgical history: Reports: angioplasty/stent Psychiatric history: Reports: no psych history - Social History Smoking Status: Current every day smoker Alcohol use: Reports: rarely Drug use: Reports: none Physical Exam - General Limitations: no limitations General appearance: alert, in no apparent distress Course Vital Signs Temperature 98.2 F 02/19/17 11:49 Pulse Rate 80 02/19/17 11:49 Respiratory Rate 16 02/19/17 11:49 Blood Pressure 147/91 02/19/17 11:49 O2 Sat by Pulse Oximetry 98 02/19/17 11:49 Temperature 98.2 F 02/19/17 11:49 Pulse Rate 65 02/19/17 14:12 Respiratory Rate 14 02/19/17 14:12 Blood Pressure 121/80 02/19/17 14:12 O2 Sat by Pulse Oximetry 99 02/19/17 14:12 Oxygen Delivery Oxygen Delivery Room Air Medical Decision Making - MDM Narrative Medical decision making narrative: The patient is experiencing chest pain which is unusual for her, she has a known history of coronary disease with stents, as well as hyperlipidemia, hypertension, CHF, diabetes mellitus, she is still a current smoker, and obesity. Based on her current symptomatology, I thought it be appropriate to admit the patient to the hospital. Aspirin was ordered. She is currently stable. I discussed the case with the hospitalist on-call who has accepted the patient to their care. - Lab Data Lab results reviewed: Yes I reviewed the patient's lab results. Result diagrams: 02/19/17 12:33 02/19/17 12:33 Lab Results 02/19/17 02/19/17 02/19/17 Range/Units 12:33 12:33 12:33 WBC 10.2 (4.3-11.1) K/mcL RBC 5.22 H (3.82-4.97) M/mcL Hgb 13.9 (11.5-15.4) g/dL Hct 42.8 (35.3-44.9) % MCV 82.0 L (83.0-100.0) fL MCH 26.6 L (28.0-33.3) pg MCHC 32.5 (31.6-35.5) g/dL RDW 15.0 H (11.5-14.5) % Plt Count 258 (140-400) K/mcL MPV 9.7 (9.4-12.4) fL Immature Gran % 0.5 (0-4) % Seg Neutrophils % 65.9 % Lymphocytes % 25.9 % Monocytes % 4.8 % Eosinophils % 2.4 % Basophils % 0.5 % Neutrophils # 6.7 (1.6-8.9) K/mcL Lymphocytes # 2.7 (0.6-4.6) K/mcL Monocytes # 0.5 (0.0-1.3) K/mcL Eosinophils # 0.3 (0.0-0.6) K/mcL Basophils # 0.1 (0.0-0.2) K/mcL PT 10.8 (9.4-12.1) Seconds INR 1.0 APTT 32.1 (26.0-36.0) Seconds Sodium (136-145) mEq/L Potassium (3.5-4.5) mEq/L Chloride (98-109) mEq/L Carbon Dioxide (19-29) mEq/L BUN (7-20) mg/dL Creatinine (0.57-1.11) mg/dL Est GFR ( Amer) (> 60) Est GFR (Non-Af Amer) (> 60) BUN/Creatinine Ratio (6-26) Glucose (70-99) mg/dL Calculated Osmolality (280-300) Calcium (8.6-10.8) mg/dL Total Bilirubin (0.2-1.2) mg/dL Direct Bilirubin (0.0-0.5) mg/dL Indirect Bilirubin (0.0-1.2) mg/dL AST (5-34) Units/L ALT (0-55) Units/L Alkaline Phosphatase (38-126) Units/L Troponin I (0-0.03) ng/mL C-Reactive Protein (Less than 5) mg/L B-Natriuretic Peptide < 10 (0-100) pg/mL Serum Total Protein (6.0-8.3) g/dL Albumin (3.5-5.0) g/dL Globulin (2.4-3.5) g/dL Albumin/Globulin Ratio (1.1-2.2) Lipase (8-78) Units/L 02/19/17 02/19/17 Range/Units 12:33 12:33 WBC (4.3-11.1) K/mcL RBC (3.82-4.97) M/mcL Hgb (11.5-15.4) g/dL Hct (35.3-44.9) % MCV (83.0-100.0) fL MCH (28.0-33.3) pg MCHC (31.6-35.5) g/dL RDW (11.5-14.5) % Plt Count (140-400) K/mcL MPV (9.4-12.4) fL Immature Gran % (0-4) % Seg Neutrophils % % Lymphocytes % % Monocytes % % Eosinophils % % Basophils % % Neutrophils # (1.6-8.9) K/mcL Lymphocytes # (0.6-4.6) K/mcL Monocytes # (0.0-1.3) K/mcL Eosinophils # (0.0-0.6) K/mcL Basophils # (0.0-0.2) K/mcL PT (9.4-12.1) Seconds INR APTT (26.0-36.0) Seconds Sodium 137 (136-145) mEq/L Potassium 4.0 (3.5-4.5) mEq/L Chloride 107 (98-109) mEq/L Carbon Dioxide 21 (19-29) mEq/L BUN 17 (7-20) mg/dL Creatinine 0.86 (0.57-1.11) mg/dL Est GFR ( Amer) > 60 (> 60) Est GFR (Non-Af Amer) > 60 (> 60) BUN/Creatinine Ratio 20 (6-26) Glucose 131 H (70-99) mg/dL Calculated Osmolality 287 (280-300) Calcium 8.8 (8.6-10.8) mg/dL Total Bilirubin 0.3 (0.2-1.2) mg/dL Direct Bilirubin 0.1 (0.0-0.5) mg/dL Indirect Bilirubin 0.2 (0.0-1.2) mg/dL AST 13 (5-34) Units/L ALT 19 (0-55) Units/L Alkaline Phosphatase 84 (38-126) Units/L Troponin I 0.00 (0-0.03) ng/mL C-Reactive Protein 16 H (Less than 5) mg/L B-Natriuretic Peptide (0-100) pg/mL Serum Total Protein 7.6 (6.0-8.3) g/dL Albumin 3.4 L (3.5-5.0) g/dL Globulin 4.2 H (2.4-3.5) g/dL Albumin/Globulin Ratio 0.8 L (1.1-2.2) Lipase 31 (8-78) Units/L - Radiology Data Radiology results reviewed: Yes I reviewed the patient's radiology results.
[2017-02-19] MEDS ORDERED: Aspirin 325 MG TABLET PO ONE (12:31)
[2017-02-19 12:54] LABS: Basophils # 0.1 K/mcL (0.0-0.2); Basophils % 0.5 %; Eosinophils # 0.3 K/mcL (0.0-0.6); Eosinophils % 2.4 %; Hematocrit 42.8 % (35.3-44.9); Hemoglobin 13.9 g/dL (11.5-15.4); Immature Granulocytes % 0.5 % (0-4); Lymphocytes # 2.7 K/mcL (0.6-4.6); Lymphocytes % 25.9 %; Mean Corpuscular HGB Conc 32.5 g/dL (31.6-35.5); Mean Corpuscular Hemoglobin 26.6 pg (28.0-33.3); Mean Platelet Volume 9.7 fL (9.4-12.4); Monocytes # 0.5 K/mcL (0.0-1.3); Monocytes % 4.8 %; Neutrophils # 6.7 K/mcL (1.6-8.9); Platelet Count 258 K/mcL (140-400); Red Blood Count 5.22 M/mcL (3.82-4.97); Segmented Neutrophils % 65.9 %
[2017-02-19 12:57] LABS: Prothrombin Time 10.8 Seconds (9.4-12.1)
[2017-02-19 12:59] LABS: Activated Partial Thrombo Time 32.1 Seconds (26.0-36.0)
[2017-02-19 13:07] LABS: Alanine Aminotransferase 19 Units/L (0-55); Albumin 3.4 g/dL (3.5-5.0); Albumin/Globulin Ratio 0.8 (1.1-2.2); Alkaline Phosphatase 84 Units/L (38-126); Aspartate Amino Transferase 13 Units/L (5-34); BUN/Creatinine Ratio 20 (6-26); Bilirubin,Direct 0.1 mg/dL (0.0-0.5); Bilirubin,Indirect 0.2 mg/dL (0.0-1.2); Bilirubin,Total 0.3 mg/dL (0.2-1.2); Blood Urea Nitrogen 17 mg/dL (7-20); Calcium 8.8 mg/dL (8.6-10.8); Carbon Dioxide 21 mEq/L (19-29); Chloride 107 mEq/L (98-109); Globulin 4.2 g/dL (2.4-3.5); Glucose 131 mg/dL (70-99); Lipase 31 Units/L (8-78); Osmolality,Calculated 287 (280-300); Sodium 137 mEq/L (136-145); Total Protein 7.6 g/dL (6.0-8.3); eGFR For African Americans > 60 (> 60); eGFR For Non-African Americans > 60 (> 60)
[2017-02-19 13:09] LABS: C-Reactive Protein 16 mg/L (Less than 5)
--- NOTE | 2017-02-19 15:08 | Internal Med History&Physical ---
Date of Encounter: 02/19/17 Time of Encounter: 14:45 Assessment and Plan (1) Chest pain Current visit: Yes Status: Acute Acute chest pain with history of coronary artery disease and ACS earlier this year. Observation. Discussed with cardiology. Will plan for stress test in the morning. Trend troponins. Telemetry monitoring. Check A1c and lipid profile. Qualifiers: Chest pain type: precordial pain Qualified Code(s): R07.2 - Precordial pain (2) Coronary artery disease Current visit: Yes Status: Chronic Continue aspirin, Plavix, beta leonel and statin Qualifiers: Coronary Disease-Associated Artery/Lesion type: [place] artery [place] vs. transplanted heart: [place] heart Associated angina: with other forms of angina Qualified Code(s): I25.118 - Atherosclerotic heart disease of [place] coronary artery with other forms of angina pectoris (3) Essential hypertension Current visit: Yes Status: Chronic Blood pressure is fairly controlled. Continue home medications and monitor blood pressure closely. We will adjust antihypertensive regimen accordingly. (4) Hyperlipidemia Current visit: Yes Status: Chronic Continue statin Qualifiers: Hyperlipidemia type: mixed hyperlipidemia Qualified Code(s): E78.2 - Mixed hyperlipidemia (5) Tobacco abuse Current visit: No Status: Chronic (6) Obesity Current visit: No Status: Chronic Qualifiers: Obesity type: due to excess calories Obesity severity: unspecified obesity severity Qualified Code(s): E66.09 - Other obesity due to excess calories (7) Diabetes mellitus Current visit: Yes Status: Chronic Monitor blood sugars. Sliding scale insulin. Check A1c levels. Qualifiers: Diabetes mellitus type: type 2 Diabetes mellitus complication status: with other specified complication Diabetes mellitus longterm insulin use: without longterm use Qualified Code(s): E11.69 - Type 2 diabetes mellitus with other specified complication Internal Medicine - H&P: HPI Chief complaint: Chest pain Admitted From: Emergency Dept Plans for Post Hospital Care: Home History of present illness: Ms. Dominguez is a 47 year old female sent with history of coronary artery disease status post 2 drug-eluting stents to the LAD the last one in October of this year presented to the ER with complaints of chest pain that began while the patient was in cardiac rehabilitation and exercising. She describes the pain as central substernal in the chest without any radiation but associated with pain in her face which was similar to her prior episodes of chest pain during her prior GA. He then went to see her primary care provider who sent her to the ER. She was given aspirin and nitroglycerin with improvement in her symptoms. She is on aspirin and Plavix and also takes statin and carvedilol. She has been chest pain-free ever since her cardiac catheterization earlier this year. She denies any palpitations or syncope. No cough or shortness of breath. Past Med Surg Social Fam HX - Past Medical History Attestation: Yes The following information was validated with the patient. Source: patient Medical history: arthritis, CHF, coronary artery disease, diabetes, fibromyalgia , GERD, hyperlipidemia, hypertension, myocardial infarction, SVT, other Psychiatric history: no psych history - Past Surgical History Surgical History: angioplasty/stent - Social History Smoking Status: Current every day smoker Alcohol use: rarely Drug use: none - Family History Father Adopted: No Family Member Ethnicity: Non- Living Status: Hx Family Cardiac Disorders: Yes (Heart failure,GA,CABG) Hx Family Respiratory Disorders: No Hx Family Cancer: No Hx Family GI Disorders: No Hx Family Endocrine Disorder: Yes (DM) Hx Family Neuromuscular Disorders: No Hx Family Neurologic Disorders: No Hx Family HEENT Disorders: No Hx Family Autoimmune Disorders: No Mother Family Member Ethnicity: Non- Living Status: Still Living Hx Family Cardiac Disorders: No Hx Family Respiratory Disorders: No Hx Family Cancer: Yes (thyroid) Hx Family GI Disorders: No Hx Family Endocrine Disorder: No Hx Family Neuromuscular Disorders: No Hx Family Neurologic Disorders: No Hx Family HEENT Disorders: No Hx Family Autoimmune Disorders: No Internal Medicine - H&P: Meds Alprazolam [Xanax 1 MG Tablet] 1 mg PO QID PRN 11/14/16 [History] Aspirin 81 mg PO DAILY 11/14/16 [History] Carvedilol [Coreg] 6.25 mg PO BID 11/14/16 [History] Clopidogrel [Plavix] 75 mg PO DAILY 11/14/16 [History] Duloxetine [Cymbalta] 30 mg PO DAILY 11/14/16 [History] Ergocalciferol (VITAMIN D2) [Vitamin D2] 50,000 unit PO SA 11/14/16 [History] Fish Oil/Dha/Epa [Fish Oil 1,200 mg Fish Oil] 1,200 mg PO DAILY 11/14/16 [ History] Furosemide [Lasix] 20 mg PO DAILY 11/14/16 [History] GlipiZIDE XL (24 HR) [Glucotrol XL] 5 mg PO QAM 11/14/16 [History] LevETIRAcetam [Keppra Xr] 1,000 mg PO HS 11/14/16 [History] Losartan [Cozaar] 25 mg PO DAILY 11/14/16 [History] Nitroglycerin [Nitrostat] 0.4 mg SL Q5M PRN 11/14/16 [History] Oxycodone HCl/Acetaminophen [Percocet 5-325 mg Tablet] 1 tab PO BID PRN [History] Potassium Chloride [Klor-Con 10] 10 meq PO DAILY 11/14/16 [History] Rosuvastatin [Crestor] 20 mg PO HS 11/14/16 [History] Sertraline [Zoloft] 100 mg PO BID 11/14/16 [History] Topiramate [Topamax] 200 mg PO TID 11/14/16 [History] Sitagliptin Phosphate [Januvia] 50 mg PO DAILY 01/09/17 [History] Isosorbide MONOnitrate (24 HR) [Imdur] 30 mg PO DAILY 02/19/17 [History] Allergies Zolpidem [From Ambien] Allergy (Severe, Verified 01/09/17 09:52) Fainting throat swelling,rash atorvastatin [From Lipitor] Allergy (Verified 01/09/17 09:52) Diarrhea doxycycline Allergy (Verified 06/20/15 15:48) Rash lisinopril Allergy (Verified 06/20/15 15:49) Cough metformin Allergy (Verified 01/09/17 09:52) Rash All Systems PM: A 10-system review of systems was performed and is negative for pertinent findings except as documented above in the HPI. - Constitutional Constitutional: no chills, no fever(s), no night sweats - EENT Eyes: no change in vision, no discharge, no pain, no photophobia Ears: no ear discharge, no ear pain, no tinnitus Nose, mouth and throat: no dysphagia, no nasal discharge, no neck pain, no sore throat - Cardiovascular Cardiovascular ROS IM: chest pain, no diaphoresis, no dyspnea, no lightheadedness, no palpitations, no syncope - Respiratory Respiratory: no cough, no dyspnea, no wheezing, no excessive phlegm production - Gastrointestinal Gastrointestinal: no abdominal pain, no diarrhea, no hematemesis, no hematochezia, no melena, no nausea, no vomiting - Genitourinary Genitourinary: no change in urinary stream, no dysuria, no flank pain, no hematuria - Musculoskeletal Musculoskeletal ROS IM: no numbness, no tingling - Integumentary Integumentary IM: no rash, no unusual bruising - Neurological Neurological ROS: no confusion, no convulsions, no focal weakness, no numbness, no tingling, no tremor(s) - Hematologic/Lymphatic Hematologic/Lymphatic: no easy bruising - Constitutional Vitals: Temp Pulse Resp BP Pulse Ox 98.2 F 65 14 121/80 99 02/19/17 11:49 02/19/17 14:12 02/19/17 14:12 02/19/17 14:12 02/19/17 14:12 General appearance: Present: cooperative, mild distress, A&O X 3, obese, answers questions appropriately - Eye Eye exam: Present: EOMI, PERRL, conjuntiva pink, sclera anicteric - Neck Neck exam general surgery: Present: supple, trachea midline. Absent: lymphadenopathy - Respiratory Respiratory exam: Present: CTAB. Absent: accessory muscle use, rales, rhonchi, wheezes - Cardiovascular Cardiovascular exam: Present: RRR, +S1, +S2. Absent: diastolic murmur, gallop, rubs, systolic murmur - GI/Abdominal GI/Abdominal exam: Present: normal bowel sounds, soft, no peritoneal signs. Absent: distended, tenderness - Extremities Exam Extremities exam: Present: warm, radial pulses palpable and symetrical. Absent : calf tenderness, cyanotic, pedal edema - Neurological Exam Neurological exam: Present: CN II-XII intact, oriented X3, no focal deficits, strengths equal and symetr throughout. Absent: facial droop, speech deficit - Skin Skin exam: Present: dry, intact Internal Med - H&P Results - Labs CBC & Chem 7: 02/19/17 12:33 02/19/17 12:33 Labs: Short CBC 02/19/17 Range/Units 12:33 WBC 10.2 (4.3-11.1) K/mcL Hgb 13.9 (11.5-15.4) g/dL Hct 42.8 (35.3-44.9) % Plt Count 258 (140-400) K/mcL Neutrophils # 6.7 (1.6-8.9) K/mcL BMP 02/19/17 12:33 Sodium 137 Potassium 4.0 Chloride 107 Carbon Dioxide 21 BUN 17 Creatinine 0.86 Glucose 131 H Calcium 8.8 Cardiac Enzymes 02/19/17 Range/Units 12:33 Troponin I 0.00 (0-0.03) ng/mL Liver Function 02/19/17 Range/Units 12:33 Total Bilirubin 0.3 (0.2-1.2) mg/dL Direct Bilirubin 0.1 (0.0-0.5) mg/dL AST 13 (5-34) Units/L ALT 19 (0-55) Units/L Alkaline Phosphatase 84 (38-126) Units/L Albumin 3.4 L (3.5-5.0) g/dL - EKG Data -: EKG Interpreted by Myself EKG shows normal: sinus rhythm - EKG Data EKG comments: 02/19/17 15:[address] segment changes - Impressions ITS Impressions Chest X-Ray 02/19/17 12:25 IMPRESSION: No acute cardiopulmonary disease. D/ / Bob Ching MD / Bob Ching MD Interpreting Provider: Bob Ching MD - Attending Attestation This document has been at least partially created by [employer] recognition technology by Dr. Lepe. Errors in grammar, wording or other phrases may exist. If errors are found after the documentation is signed, they will be addressed individually in the addendum section of this document when appropriate.
[2017-02-19] MEDS ORDERED: Acetaminophen 325 MG TABLET PO PRN (15:25)
[2017-02-19] MEDS ORDERED: Naloxone 0.4 MG/ML INJ IVP PRN (15:25)
[2017-02-19] MEDS ORDERED: Nitroglycerin 0.4 MG TAB.SUBL SL PRN (15:29)
[2017-02-19] MEDS ORDERED: ALPRAZolam 1 MG TABLET PO PRN (15:29)
[2017-02-19] MEDS ORDERED: D5% in Water 1,000 ML IVC PRN (15:31)
[2017-02-19] MEDS ORDERED: Dextrose Gel 15 GM PO PRN ×2 (15:31)
[2017-02-19] MEDS ORDERED: *HR* Dextrose 50 % in Water (Syg) 50 ML SYRINGE IVP PRN (15:31)
[2017-02-19] MEDS: *HR* OxyCODONE/APAP 5/325 TABLET PO PRN (17:51)
[2017-02-19] MEDS: Insulin LISPRO 300 UNITS/3 ML VIAL SQ SCH ×2 (17:52→21:34)
[2017-02-19] MEDS: levETIRAcetam 250 MG TABLET PO SCH (21:32)
[2017-02-19] MEDS: Topiramate 100 MG TABLET PO SCH (21:32)
[2017-02-20] MEDS ORDERED: Regadenoson 0.4 MG/5 ML SYRINGE IVP ONE (06:15)
[2017-02-20 07:05] LABS: Basophils # 0.1 K/mcL (0.0-0.2); Basophils % 0.5 %; Eosinophils # 0.3 K/mcL (0.0-0.6); Eosinophils % 3.2 %; Hematocrit 40.8 % (35.3-44.9); Hemoglobin 13.1 g/dL (11.5-15.4); Immature Granulocytes % 0.3 % (0-4); Lymphocytes # 2.3 K/mcL (0.6-4.6); Lymphocytes % 24.7 %; Mean Corpuscular HGB Conc 32.1 g/dL (31.6-35.5); Mean Corpuscular Hemoglobin 26.7 pg (28.0-33.3); Mean Corpuscular Volume 83.1 fL (83.0-100.0); Mean Platelet Volume 10.1 fL (9.4-12.4); Monocytes # 0.5 K/mcL (0.0-1.3); Monocytes % 5.6 %; Neutrophils # 6.2 K/mcL (1.6-8.9); Platelet Count 218 K/mcL (140-400); Red Blood Count 4.91 M/mcL (3.82-4.97); Red Cell Distribution Width 15.2 % (11.5-14.5); Segmented Neutrophils % 65.7 %
[2017-02-20 07:12] LABS: Hemoglobin A1C 6.6 %
[2017-02-20 07:17] LABS: BUN/Creatinine Ratio 18 (6-26); Blood Urea Nitrogen 15 mg/dL (7-20); Calcium 8.4 mg/dL (8.6-10.8); Carbon Dioxide 19 mEq/L (19-29); Chloride 110 mEq/L (98-109); Chol/HDL Ratio 9.8 (0-4.9); Cholesterol 244 mg/dL (< 200); Glucose 148 mg/dL (70-99); HDL Cholesterol 25 mg/dL (40-59); LDL Cholesterol,Calculated 150 mg/dL (0-99); Osmolality,Calculated 288 (280-300); Sodium 137 mEq/L (136-145); Triglycerides 346 mg/dL (< 150); eGFR For African Americans > 60 (> 60); eGFR For Non-African Americans > 60 (> 60)
[2017-02-20] MEDS: Topiramate 100 MG TABLET PO SCH ×3 (09:52→19:48)
[2017-02-20] MEDS: Aspirin 81 MG TAB.CHEW PO SCH (09:52)
[2017-02-20] MEDS: Isosorbide MONOnitrate (24 HR) 30 MG TAB.ER.24H PO SCH (09:53)
[2017-02-20] MEDS: Furosemide 20 MG TABLET PO SCH (09:53)
[2017-02-20] MEDS: Insulin LISPRO 300 UNITS/3 ML VIAL SQ SCH ×4 (09:58→21:55)
[2017-02-20] MEDS: *HR* OxyCODONE/APAP 5/325 TABLET PO PRN ×2 (10:09→19:48)
--- NOTE | 2017-02-20 17:54 | Internal Med Progress Note ---
Date of Encounter: 02/20/17 Time of Encounter: 10:15 - Assessment and plan (1) Chest pain Current Visit: Yes Status: Acute Assessment and plan: Patient had acute onset left chest pain and facial pain after finishing work out at cardiac rehabilitation yesterday. She became diaphoretic, however she denies shortness of breath or nausea and vomiting. Patient states that after she began having chest pain she sat down and became profusely diaphoretic. During her last admission in October when she had an UT, she did have facial pain at that time. She says that she is still intermittently having the chest pain. She describes it as intermittent, tall, achy, with radiation around to the mid axillary area and around to left mid back. In October 2016 patient had a PRICILLA inserted in the LAD. The stent replaced the original stent that became 90 % occluded was inserted April 2015. Today was day 1 of the 2 day stress test. Patient had a stress echo in November of this year that was indeterminate for ischemia due to inability to reach target heart rate. Troponins have been negative 3 Telemetry Cardiac diet Monitor patient vital signs Pain control as needed Oxygen as needed Complete stress test in the morning. Qualifiers: Chest pain type: precordial pain Qualified Code(s): R07.2 - Precordial pain (2) Coronary artery disease Current Visit: Yes Status: Chronic Assessment and plan: Patient has coronary artery disease with stent placement. Recent UT. Completing stress test day 2 tomorrow. Continue aspirin, Plavix, beta leonel, and statin. Lipid profile is elevated. May consider changing or increasing statin dose. Qualifiers: Coronary Disease-Associated Artery/Lesion type: [place] artery [place] vs. transplanted heart: [place] heart Associated angina: with other forms of angina Qualified Code(s): I25.118 - Atherosclerotic heart disease of [place] coronary artery with other forms of angina pectoris (3) Diabetes mellitus Current Visit: Yes Status: Chronic Assessment and plan: A1c 6.6. Accu-Cheks in the 140s. Accu-Cheks before meals at bedtime Diabetic diet Sliding-scale insulin Hypoglycemia protocol Qualifiers: Diabetes mellitus type: type 2 Diabetes mellitus complication status: with other specified complication Diabetes mellitus terminal press operator insulin use: without terminal press operator use Qualified Code(s): E11.69 - Type 2 diabetes mellitus with other specified complication (4) Hyperlipidemia Current Visit: Yes Status: Chronic Assessment and plan: Lipid panel is elevated. Continue statin May want to increase statin or add medication. Qualifiers: Hyperlipidemia type: mixed hyperlipidemia Qualified Code(s): E78.2 - Mixed hyperlipidemia - Time Spent With Patient less than 15 minutes - Subjective Interval history: Patient was seen and assessed at about 10:15 this morning. She is alert and awake, sitting up in the bed. She reports that she was at cardiac rehabilitation yesterday finished what she was supposed to be doing, and began having chest pain and facial pain. She said that she also became diaphoretic after it was over, denied nausea or vomiting. The pain did radiate around her left chest around midaxillary area to left mid back. She described it as a pressure and a dull ache. She says that she is still having the pain intermittently. She says normally her pain when she has an MRI or needs a heart catheter is facial pain, like sinusitis. I am familiar with this patient as I admitted her in October of this year, and her symptoms are much the same. She is a 2 day stress test. - Constitutional Vitals: Temp Pulse Resp BP Pulse Ox 97.5 F L 59 14 105/69 95 02/20/17 15:46 02/20/17 16:24 02/20/17 15:46 02/20/17 16:24 02/20/17 15:46 General appearance: Present: cooperative, mild distress, A&O X 3, pleasant, obese, answers questions appropriately - Head Head exam: Present: normal inspection - Eye Eye exam: Present: normal appearance, conjuntiva pink - ENT ENT exam: Present: mucous membranes moist, normal exam - Neck Neck exam general surgery: Present: normal inspection. Absent: lymphadenopathy , tenderness - Respiratory Respiratory exam: Present: decreased breath sounds, CTAB. Absent: rales, rhonchi, stridor, wheezes - Cardiovascular Cardiovascular exam: Present: RRR, +S1, +S2. Absent: diastolic murmur, systolic murmur - Expanded Cardiovascular Exam Peripheral pulses: 1+: Dorsalis Pedis (L) PM, Dorsalis Pedis (R) PM - GI/Abdominal GI/Abdominal exam: Present: normal bowel sounds, soft. Absent: distended, firm , hepatomegaly, tenderness - Extremities Exam Extremities exam: Present: normal inspection, warm, radial pulses palpable and symetrical. Absent: calf tenderness, joint swelling, pedal edema, tenderness - Neurological Exam Neurological exam: Present: alert, oriented X3, no focal deficits, strengths equal and symetr throughout. Absent: motor sensory deficit, facial droop, speech deficit Internal Medicine: Result - Labs CBC & Chem 7: 02/20/17 05:10 02/20/17 05:10 Labs: Short CBC 02/20/17 Range/Units 05:10 WBC 9.4 (4.3-11.1) K/mcL Hgb 13.1 (11.5-15.4) g/dL Hct 40.8 (35.3-44.9) % Plt Count 218 (140-400) K/mcL Neutrophils # 6.2 (1.6-8.9) K/mcL BMP 02/20/17 05:10 Sodium 137 Potassium 4.0 Chloride 110 H Carbon Dioxide 19 BUN 15 Creatinine 0.83 Glucose 148 H Calcium 8.4 L Cardiac Enzymes 02/19/17 02/19/17 Range/Units 17:45 23:48 Troponin I 0.00 0.00 (0-0.03) ng/mL - ABG Interpretation ABG results: PT/INR, D-dimer PT 10.8 Seconds (9.4-12.1) 02/19/17 12:33 Consult Discharge Plan - Plan Referrals: Francisco Dugan MD [Primary Care Provider] - 02/27/17 1:15 pm
--- NOTE | 2017-02-20 19:22 | Electrocardiograph Report ---
[place] [id number] Test Date: 2017-02-19 Pat Name: Kassie Dominguez Department: 105 Room: 3B46 Gender: F Duty Manager: : 1970 Requested By: Bobby Garcia Order Number: [id number] Reading MD: Rigoberto Burch MD Measurements Intervals [place] Rate: 66 P: 55 NE: 190 QRS: 62 QRSD: 84 T: 39 QT: 392 QTc: 405 Interpretive Statements SINUS RHYTHM Electronically Signed On 02-20-2017 19:20:32 EDT by Rigoberto Burch MD
[2017-02-20] MEDS: levETIRAcetam 250 MG TABLET PO SCH (19:49)
[2017-02-21 06:14] LABS: Basophils % 0.3 %; Eosinophils # 0.2 K/mcL (0.0-0.6); Eosinophils % 2.8 %; Hematocrit 40.8 % (35.3-44.9); Hemoglobin 12.7 g/dL (11.5-15.4); Immature Granulocytes % 0.3 % (0-4); Lymphocytes # 2.5 K/mcL (0.6-4.6); Lymphocytes % 28.6 %; Mean Corpuscular HGB Conc 31.1 g/dL (31.6-35.5); Mean Corpuscular Hemoglobin 25.9 pg (28.0-33.3); Mean Corpuscular Volume 83.1 fL (83.0-100.0); Mean Platelet Volume 9.3 fL (9.4-12.4); Monocytes # 0.5 K/mcL (0.0-1.3); Monocytes % 5.7 %; Neutrophils # 5.4 K/mcL (1.6-8.9); Platelet Count 209 K/mcL (140-400); Red Blood Count 4.91 M/mcL (3.82-4.97); Red Cell Distribution Width 14.9 % (11.5-14.5); Segmented Neutrophils % 62.3 %
[2017-02-21 06:27] LABS: BUN/Creatinine Ratio 20 (6-26); Blood Urea Nitrogen 16 mg/dL (7-20); Calcium 8.5 mg/dL (8.6-10.8); Carbon Dioxide 22 mEq/L (19-29); Chloride 109 mEq/L (98-109); Glucose 147 mg/dL (70-99); Osmolality,Calculated 292 (280-300); Potassium 3.8 mEq/L (3.5-4.5); Sodium 139 mEq/L (136-145); eGFR For African Americans > 60 (> 60); eGFR For Non-African Americans > 60 (> 60)
[2017-02-21] MEDS: Aspirin 81 MG TAB.CHEW PO SCH (09:20)
[2017-02-21] MEDS: Furosemide 20 MG TABLET PO SCH ×2 (09:20→09:41)
[2017-02-21] MEDS: Topiramate 100 MG TABLET PO SCH (09:21)
[2017-02-21] MEDS: Insulin LISPRO 300 UNITS/3 ML VIAL SQ SCH ×2 (09:38→13:50)
--- NOTE | 2017-02-21 11:40 | Nuclear Medicine Stress Report ---
Exercise Nuclear Stress 2 day Name: Kassie Dominguez Date of Study: 02/20/2017 Date: 1970 Ht: 66.0 in Medical Record#: [id number] Age: 47 Wt: 242.0 lb Gender: Female Order #: [id number] Location: [facility] Room: [facility] Supervising Provider: Nancy Dailey CNP Reading Physician: Garrett Patel DO, FAC, [facility] Ordering Physician: Lory Blakely CNP Primary Care Physician: Francisco Dugan MD Stress Technologist: Lc Parkinson, DIRECTOR VOICE, CCT Hand Mixer: Benjamin Saba Indications: Chest Pain Impression: Exercise ECG is negative for ischemia. The exercise capacity was good. Chest discomfort reported prior to, during, and after exercise. Gated EF = 67%. Small sized, moderate intensity, fixed defect involving the apical anterior, apex, and apical inferior. Wall motion is normal. These findings are consistent with artifact. Perfusion imaging was negative for ischemia or infarct. History: Hypertension Diabetes Hypercholesteremia History of Smoking Prior PCI Stress Test Summary: Stress Test Type: Treadmill Protocol: Rigoberto Baseline Information: Initial Heart Rate: 67 Blood Pressure: 90/70 Stress Information: Stress Time: 8 min 01 sec Test Terminated Due to (primary): Dyspnea Fatigue Maximum Blood Pressure: 150/80 Maximum Heart Rate: 146 Percent Maximum Heart Rate Achieved: 85 Double Product: 21,900 METS Reached: 10.1 Nuclear Summary: SPECT myocardial perfusion imaging using Tc99m Sestamibi given intravenously was performed at rest and following cardiac stress testing. The resting images were obtained following initial dose of 33 mCi. Following stress an additional dose of 35.3 mCi was given at peak exercise or 30 seconds post regadenoson infusion. Medication Given: Time Medication Dose Units Route Findings: Stress Note * Resting ECG demonstrated normal sinus rhythm. * No baseline arrhythmias were noted. * Exercise ECG is negative for ischemia. * No arrhythmias were noted during stress. * The exercise capacity was good. * Chest discomfort reported prior to, during, and after exercise. Hemodynamic responses * Normal hemodynamic responses to exercise. Study Quality * Study quality is average. Gated EF % * Gated EF = 67%. Left Ventricle * The left ventricle is not dilated. * LVEDV = 107 mL. NORMALS * Normal wall motion. Apical Perfusion Rest * The apical anterior, apex, and apical inferior segments show a moderate reduction in perfusion. Apical Perfusion Stress * The apical anterior, apex, and apical inferior segments show a moderate reduction in perfusion. TID * No evidence of transient ischemic dilatation. TID ratio * TID ratio = 0.74. Lung Uptake * There is no evidence of increase lung uptake. Updated by Garrett Patel DO, DINO, MIGUEL, HOLLIE on 02/21/2017 11:36:43 AM electronically signed on 02/21/2017 11:37:15 AM with status of Final
--- NOTE | 2017-02-21 13:47 | Cardiology Consult Note ---
Date of Encounter: 02/21/17 Time of Encounter: 13:30 Assessment and Plan (1) Chest pain Current Visit: Yes Status: Acute Presented with chest pain & facial pain that occurred during exercise at cardiac rehab. Troponin negative x3. No ischemic ECG changes. Regadenoson (2-day) nuclear stress: gated EF=67%, perfusion negative for ischemia or infarct. Recommend medical management. BP has been borderline and several medications have been held during inpatient stay. Will stop ARB. Appears euvolemic upon exam, recommend prn dosing of lasix for edema/weight gain. Continue betablocker, will increase imdur to 60 mg daily. Risk factor modification including smoking cessation and improved glycemic control. Close outpatient follow-up with [facility]. Qualifiers: Qualified Code(s): R07.2 - Precordial pain (2) Coronary artery disease Current Visit: Yes Status: Chronic Hx of AMI in 2014 and 2016. Hx of systolic dysfunction with recovered EF. Most recent PCI 11/15/16 with PRICILLA to LAD. Continue asa, statin, and betablocker. DAPT (asa + plavix) uninterrupted for at least 1 year s/p PCI with PRICILLA. Qualifiers: Qualified Code(s): I25.118 - Atherosclerotic heart disease of [place] coronary artery with other forms of angina pectoris Discussion w patient/family: The assessment and plan as outlined above was discussed with the patient and/or family members who expressed understanding and agreement. All questions were answered. Thank you for involving us in the care of your patient. Please call with any questions. The patient will be discussed and reviewed with Dr. De Paz; changes to be made accordingly. History of Present Illness Consult date: 02/21/17 Requesting physician: Lory Blakely Consult reason: Chest pain Chief complaint: chest pain History of present illness: Ms. Dominguez is a 47 year old female with PMH significant for CAD s/p PCI, recovered cardiomyopathy, HTN, HLD, DMII, and tobacco use who presented to the ED after had chest pain during exercise at cardiac rehab on Friday. She reports she was able to complete exercise (10 minutes) but had facial pain and chest discomfort. After she sat down, she became nauseated and diaphoretic. She followed up with her PCP who recommended ED evaluation. Upon arrival to ED, troponin was negative x3, no ischemic ECG changes noted. She underwent nuclear stress test (2-day) which was negative for ischemia or infarct. Overnight, she reports an episode of severe chest discomfort that lasted nearly 20 minutes, pain improved without intervention. Recent CV testing: [facility] 11/15/16: patent pLAD stent, successful PTCA/PRICILLA to mLAD stenosis; otherwise mild, non-obstructive CAD. (30% pLCx, 30% pRCA). TTE 11/15/16: EF 55-60%, normal wall motion. (Limited study). Past Med Surg Social Fam HX - Past Medical History Medical history: arthritis, CHF (hx of systolic dysfunction with recovered EF), coronary artery disease, diabetes, fibromyalgia, GERD, hyperlipidemia, hypertension, myocardial infarction, SVT Psychiatric history: no psych history - Past Surgical History Surgical History: angioplasty/stent - Social History Smoking Status: Current every day smoker Packs per day: 1 Smokeless Tobacco Status: No Alcohol use: rarely Drug use: none - Family History Father Adopted: No Family Member Ethnicity: Non- Living Status: Age at : 66 Cause of : Heart /kidney Hx Family Cardiac Disorders: Yes Hx Family Respiratory Disorders: No Hx Family Cancer: No Hx Family GI Disorders: No Hx Family Genitourinary Disorders: No Hx Family Endocrine Disorder: No Hx Family Musculoskeletal Disorders: No Hx Family Neuromuscular Disorders: No Hx Family Neurologic Disorders: No Hx Family HEENT Disorders: No Hx Family Autoimmune Disorders: No Hx Family Reproductive Disorders: No Hx Family Psychosocial Disorders: No Hx Family Medical Disorders: No Mother Family Member Ethnicity: Non- Living Status: Still Living Hx Family Cardiac Disorders: No Hx Family Respiratory Disorders: No Hx Family Cancer: Yes (thyroid) Hx Family GI Disorders: No Hx Family Endocrine Disorder: No Hx Family Neuromuscular Disorders: No Hx Family Neurologic Disorders: No Hx Family HEENT Disorders: No Hx Family Autoimmune Disorders: No Medications and Allergies Alprazolam [Xanax 1 MG Tablet] 1 mg PO QID PRN 11/14/16 [History] Aspirin 81 mg PO DAILY 11/14/16 [History] Carvedilol [Coreg] 6.25 mg PO BID 11/14/16 [History] Clopidogrel [Plavix] 75 mg PO DAILY 11/14/16 [History] Duloxetine [Cymbalta] 30 mg PO DAILY 11/14/16 [History] Ergocalciferol (VITAMIN D2) [Vitamin D2] 50,000 unit PO SA 11/14/16 [History] Fish Oil/Dha/Epa [Fish Oil 1,200 mg Fish Oil] 1,200 mg PO DAILY 11/14/16 [ History] Furosemide [Lasix] 20 mg PO DAILY 11/14/16 [History] GlipiZIDE XL (24 HR) [Glucotrol XL] 5 mg PO QAM 11/14/16 [History] LevETIRAcetam [Keppra Xr] 1,000 mg PO HS 11/14/16 [History] Losartan [Cozaar] 25 mg PO DAILY 11/14/16 [History] Nitroglycerin [Nitrostat] 0.4 mg SL Q5M PRN 11/14/16 [History] Oxycodone HCl/Acetaminophen [Percocet 5-325 mg Tablet] 1 tab PO BID PRN [History] Potassium Chloride [Klor-Con 10] 10 meq PO DAILY 11/14/16 [History] Rosuvastatin [Crestor] 20 mg PO HS 11/14/16 [History] Sertraline [Zoloft] 100 mg PO BID 11/14/16 [History] Topiramate [Topamax] 200 mg PO TID 11/14/16 [History] Sitagliptin Phosphate [Januvia] 50 mg PO DAILY 01/09/17 [History] Isosorbide MONOnitrate (24 HR) [Imdur] 30 mg PO DAILY 02/19/17 [History] Amoxicillin/Clavulanate [Augmentin] 875 mg PO BIDWM #18 tablet 02/21/17 [Rx] Calcium Carbonate [Tums] 1,000 mg PO QID tab.chew 02/21/17 [Rx] Furosemide [Lasix] 10 mg PO DAILY PRN #10 tablet 02/21/17 [Rx] Allergies Zolpidem [From Ambien] Allergy (Severe, Verified 01/09/17 09:52) Fainting throat swelling,rash atorvastatin [From Lipitor] Allergy (Verified 01/09/17 09:52) Diarrhea doxycycline Allergy (Verified 06/20/15 15:48) Rash lisinopril Allergy (Verified 06/20/15 15:49) Cough metformin Allergy (Verified 01/09/17 09:52) Rash All Systems Review: A 10-system review of systems was performed and is negative for pertinent findings except as documented above in the HPI. - Cardiovascular Cardiovascular: as per HPI Physical Examination Vital Signs, Last 4 Hours Temp Pulse Resp BP Pulse Ox 02/21/17 11:33 98.1 F 91 16 105/72 96 General: Conversant, No Apparent Distress HEENT: Atraumatic, Normocephaly, Mucus Membranes Moist Cardiac: Reg Rate and Rhythm, Normal S1 and S2 Lungs: Normal Breath Sounds Neuro: Alert and responsive Abdomen: Soft Skin: No rashes noted on visualized skin Musculoskeletal: No Chest Wall Tenderness Extremities: No Edema, Normal Pulses Results 02/21/17 05:42 02/21/17 05:42 Lab Results 02/21/17 02/21/17 05:42 05:42 WBC 8.7 Hgb 12.7 Hct 40.8 Plt Count 209 Sodium 139 Potassium 3.8 Chloride 109 Carbon Dioxide 22 BUN 16 Creatinine 0.82 Glucose 147 H Calcium 8.5 L - Imaging and Cardiology Stress Test: report reviewed Echo: report reviewed Cardiac cath: report reviewed Other Results: 12 hour tele: avg HR=59 SR. - EKG Interpretation EKG results cardiology: personally reviewed Consult Discharge Plan - Plan Instructions: Furosemide (By mouth), Amoxicillin/Clavulanate Potassium (By mouth), Chest Pain (DC) Referrals: Francisco Dugan MD [Primary Care Provider] - 02/27/17 1:15 pm Prescriptions: Amoxicillin/Clavulanate [Augmentin] 875 mg PO BIDWM #18 tablet Furosemide [Lasix] 10 mg PO DAILY PRN #10 tablet PRN Reason: Edema
[2017-02-21] MEDS: Isosorbide MONOnitrate (24 HR) 30 MG TAB.ER.24H PO SCH (13:48)
[2017-02-21] MEDS ORDERED: Furosemide 20 MG TABLET PO PRN (14:28)
--- NOTE | 2017-02-21 14:55 | Discharge Summary ---
Date of Encounter: 02/21/17 Time of Encounter: 10:15 - Discharge Diagnosis (1) Chest pain Priority: Primary Status: Acute Comments: Patient states that she has not had any chest pain since last night. She said that the pain got really intense at about 10 PM. She says that the pain was relieved after receiving nitroglycerin This had new component to it., This time the pain radiated around to her back. Patient finished D2 of nuclear stress test. Gated EF = 67%, perfusion was negative for ischemia or infarct. Cardiology recommends stopping ARB. They also recommend when necessary Lasix for edema/weight gain. Increase Imdur to 60 mg daily, continue the beta leonel. Encourage smoking cessation and improved glycemic control. Follow-up closely outpatient with additional cardiology. Patient states that she has been trying to lose weight and keep her blood sugar and control. She reports an almost 40 pound intentional weight loss. Qualifiers: Chest pain type: precordial pain Qualified Code(s): R07.2 - Precordial pain (2) Coronary artery disease Priority: Primary Status: Chronic Comments: Patient has history of PR in 2015 at 2017. She had PR with stent placement in October. Continue aspirin, statin, beta leonel. DAPT for at least one year after PCI with PRICILLA. Qualifiers: Coronary Disease-Associated Artery/Lesion type: [place] artery [place] vs. transplanted heart: [place] heart Associated angina: with other forms of angina Qualified Code(s): I25.118 - Atherosclerotic heart disease of [place] coronary artery with other forms of angina pectoris (3) Diabetes mellitus Priority: Secondary Status: Chronic Comments: A1c is 6.6, down from 10.4 in October at time of PR. Patient also reports about 40 pound intentional weight loss. Her Accu-Cheks have been in the 140s. Continue diabetic diet and weight loss at home. Continue home medications. Follow-up with primary care physician for continued monitoring of blood glucose and possible necessary medication changes. Qualifiers: Diabetes mellitus type: type 2 Diabetes mellitus complication status: with other specified complication Diabetes mellitus residential insulin use: without terminal block assembler use Qualified Code(s): E11.69 - Type 2 diabetes mellitus with other specified complication (4) Hyperlipidemia Priority: Secondary Status: Chronic Qualifiers: Hyperlipidemia type: mixed hyperlipidemia Qualified Code(s): E78.2 - Mixed hyperlipidemia (5) Dental caries Priority: Secondary Status: Chronic - Discharge Medications Prescriptions: Amoxicillin/Clavulanate [Augmentin] 875 mg PO BIDWM #18 tablet Furosemide [Lasix] 10 mg PO DAILY PRN #10 tablet PRN Reason: Edema Isosorbide MONOnitrate (24 HR) [Imdur] 60 mg PO DAILY #30 tab.er.24h Home Medications: Alprazolam [Xanax 1 MG Tablet] 1 mg PO QID PRN 11/14/16 [History] Aspirin 81 mg PO DAILY 11/14/16 [History] Carvedilol [Coreg] 6.25 mg PO BID 11/14/16 [History] Clopidogrel [Plavix] 75 mg PO DAILY 11/14/16 [History] Duloxetine [Cymbalta] 30 mg PO DAILY 11/14/16 [History] Ergocalciferol (VITAMIN D2) [Vitamin D2] 50,000 unit PO SA 11/14/16 [History] Fish Oil/Dha/Epa [Fish Oil 1,200 mg Fish Oil] 1,200 mg PO DAILY 11/14/16 [ History] Furosemide [Lasix] 20 mg PO DAILY 11/14/16 [History] GlipiZIDE XL (24 HR) [Glucotrol XL] 5 mg PO QAM 11/14/16 [History] LevETIRAcetam [Keppra Xr] 1,000 mg PO HS 11/14/16 [History] Losartan [Cozaar] 25 mg PO DAILY 11/14/16 [History] Nitroglycerin [Nitrostat] 0.4 mg SL Q5M PRN 11/14/16 [History] Oxycodone HCl/Acetaminophen [Percocet 5-325 mg Tablet] 1 tab PO BID PRN [History] Potassium Chloride [Klor-Con 10] 10 meq PO DAILY 11/14/16 [History] Rosuvastatin [Crestor] 20 mg PO HS 11/14/16 [History] Sertraline [Zoloft] 100 mg PO BID 11/14/16 [History] Topiramate [Topamax] 200 mg PO TID 11/14/16 [History] Sitagliptin Phosphate [Januvia] 50 mg PO DAILY 01/09/17 [History] Isosorbide MONOnitrate (24 HR) [Imdur] 30 mg PO DAILY 02/19/17 [History] Amoxicillin/Clavulanate [Augmentin] 875 mg PO BIDWM #18 tablet 02/21/17 [Rx] Calcium Carbonate [Tums] 1,000 mg PO QID tab.chew 02/21/17 [Rx] Furosemide [Lasix] 10 mg PO DAILY PRN #10 tablet 02/21/17 [Rx] Isosorbide MONOnitrate (24 HR) [Imdur] 60 mg PO DAILY #30 tab.er.24h 02/21/17 [ Rx] Allergies/Adverse Reactions: Allergies Zolpidem [From Ambien] Allergy (Severe, Verified 01/09/17 09:52) Fainting throat swelling,rash atorvastatin [From Lipitor] Allergy (Verified 01/09/17 09:52) Diarrhea doxycycline Allergy (Verified 06/20/15 15:48) Rash lisinopril Allergy (Verified 06/20/15 15:49) Cough metformin Allergy (Verified 01/09/17 09:52) Rash Procedures/tests Complete & Pending: Procedures Performed prior 72 hours Category Date Time Status NM tessa perf SPECT multi [NM] Routine Exams 02/19/17 15:34 Taken ECG 12 lead ECG [ECG] Routine Y 02/20/17 07:00 Completed SP exercise nuclear stress Routine Y 02/20/17 07:15 Completed Date of admission: 02/19/17 15:19 Primary care physician: Francisco Dugan MD Consults: 02/19/17 15:25 Consult to Nurse Navigator [CONS] Routine Comment: 02/21/17 10:52 Consult to Cardiology [CONS] Routine Comment: Consulting Provider: Cardiology Alla Reason for Consult: Stress today. Report not back yet. Was still having chest pain overnight, relieved with nitro. Pain free at this time. Time Notified: 10:53 Call Completed: Yes Discharging clinician: Lory Blakely Anticipated date of discharge: 02/21/17 - Patient Status Disposition: Home, Self-Care Functional capacity at discharge: independent ambulation Overall status at discharge: patient is back to baseline - Discharge Instructions Instructions: Chest Pain (DC) Follow Up With: Francisco Dugan MD [Primary Care Provider] - 02/27/17 1:15 pm Additional Instructions: STart taking IMdur 60mg instead of 30mg Lasix 10mg as needed for weight gain or swelling Follow up with cardiology as scheduled Follow up with dentist for repair and reevaluation of infection Continue your home medications Continue your diabetic/heart healthy diet Monitor your blood sugars as normal. - Diet and Activity Activity: increase activity as tolerated Diet: diabetic diet, low fat, low cholesterol, low salt diet Hospital course: Ms. Dominguez is a 47 year old female with history of CAD with stents, PR, HLD, HTN , DM. Pt reports acute onset L chest pain and faial lpain after work out at cardiac rehabilitation 2 days ago. She became diaphoretic, however she denies SOB, n/v. She continued to have the chest pain until last night, this time with radiation into her back, until she was given NTG that relieved her pain. 2 day stress was negative for ischemia or infarct. Troponins were negative x 3, and she had no changes in her EKG that indicated ischemia. TTE done in [facility] showed EF 55-60%, normal wall motion. Pt was seen by cardiology today. Imdur is increased to 60mg daily. I have given her a prescription for lasix 10mg to use prn for weight gain prn. She will continue her BB and her DAPT. Pt states that she had a partial root canal done in October immediately prior to her PR. She states that her dentist won't finish the root canal until cardiology signs off, cardiology will not sign off due to pt's condition. Pt did have a small abscess in the gum above the L upper incisor. I have given her Augmentin 875mg po bid x 10 day and explained to her that she has got to get dental care. Tooth has broken off. She agrees and says that she will follow up with dentist. - Time Spent with Patient Total time spent providing and/or coordinating discharge services: Less than 30 minutes - Constitutional Vitals: Temp Pulse Resp BP Pulse Ox 98.1 F 91 16 105/72 96 02/21/17 11:33 02/21/17 11:33 02/21/17 11:33 02/21/17 11:33 02/21/17 11:33 General appearance: Present: cooperative, mild distress, A&O X 3, pleasant, obese, answers questions appropriately - Head Head exam: Present: normal inspection - Eye Eye exam: Present: normal appearance, conjuntiva pink - ENT ENT exam: Present: mucous membranes moist, normal exam, normal external ear exam - Neck Neck exam general surgery: Present: normal inspection. Absent: lymphadenopathy , tenderness - Respiratory Respiratory exam: Present: decreased breath sounds, CTAB. Absent: rales, respiratory distress, rhonchi, stridor, wheezes, tachypnea - Cardiovascular Cardiovascular exam: Present: RRR, +S1, +S2. Absent: diastolic murmur, systolic murmur - GI/Abdominal GI/Abdominal exam: Present: normal bowel sounds, soft. Absent: distended, hepatomegaly, tenderness - Extremities Exam Extremities exam: Present: normal capillary refill, normal inspection, warm, radial pulses palpable and symetrical. Absent: mottling, pedal edema, tenderness - Neurological Exam Neurological exam: Present: alert, oriented X3, no focal deficits, strengths equal and symetr throughout. Absent: pronater drift, facial droop, speech deficit
[2017-02-21 15:25] VITALS: BP 116/49
--- NOTE | 2017-02-21 17:50 | Electrocardiograph Report ---
[place] [id number] Test Date: 2017-02-20 Pat Name: Kassie Domingeuz Department: 113 Room: 3B46 Gender: F Stack Yield Engineer: BYRON : 1970 Requested By: Adriano Lepe Order Number: [id number] Reading MD: Ginger Hunt Measurements Intervals [place] Rate: 64 P: 55 FL: 178 QRS: 74 QRSD: 88 T: 45 QT: 442 QTc: 452 Interpretive Statements SINUS RHYTHM Electronically Signed On 02-21-2017 17:48:53 EDT by Ginger Hunt
[2017-02-22] MEDS ORDERED: Isosorbide MONOnitrate (24 HR) 30 MG TAB.ER.24H PO SCH (09:00)
== END 2017-02-21 17:20 | disposition home or self-care (01) ==
LOC: 3BNU 11:48 → EMEROO 11:48 → 3BNU 15:46
PROVIDERS: ADMIT Internal Medicine; ATTEND Registered Nurse

== ENCOUNTER 2017-07-20 13:32 | Observation (INO) ==
[2017-07-20] MEDS ORDERED: Aspirin 81 MG TAB.CHEW PO ONE (13:40)
--- NOTE | 2017-07-20 13:43 | Emergency Department Note ---
Disposition Clinical Impression: Chest pain Qualifiers: Chest pain type: unspecified Qualified Code(s): R07.9 - Chest pain, unspecified Disposition: Admitted As Inpatient Condition: Good Referrals: Francisco Dugan MD [Primary Care Provider] - Forms: ED Satisfaction Letter Time of Disposition: 14:30 Chest Pain HPI - General Chief Complaint: ED Chest Pain Stated Complaint: chest,face,jaw pain Time Seen by Provider: 07/20/17 13:40 Source: patient, family Mode of arrival: wheelchair Limitations: no limitations Vital Signs Reviewed: Yes Nursing Notes Reviewed: Yes - History of Present Illness HPI Narrative: 47-year-old with a history of previous [place] 2 and 3 stents last being October 2016 comes in complaining of intermittent chest pain for the last week. States she was vacuuming yesterday and developed chest pain she was diaphoretic radiation to the jaw. Patient has risk factors of smoking, diabetes, hypertension, hypercholesterolemia, family history. Patient states this pain is similar to what she had prior to requiring stents. Pt complaint: chest pain Onset (ago): week(s) (1) Quality: tightness, aching, heaviness Pain Radiation: jaw/teeth Improves with: nitroglycerin Worsens with: exertion Associated symptoms: Denies: syncope Treatments prior to arrival chest pain: aspirin, nitroglycerin - Related Data Home Medications Medication Instructions Recorded Confirmed ALPRAZolam [Xanax 1 MG Tablet] 1 mg PO QID PRN 11/14/16 02/19/17 Aspirin 81 mg PO DAILY 11/14/16 02/19/17 Carvedilol [Coreg] 6.25 mg PO BID 11/14/16 02/19/17 Clopidogrel [Plavix] 75 mg PO DAILY 11/14/16 02/19/17 DULoxetine [Cymbalta] 30 mg PO DAILY 11/14/16 02/19/17 Ergocalciferol (VITAMIN D2) 50,000 unit PO SA 11/14/16 02/19/17 [Vitamin D2] Fish Oil/Dha/Epa [Fish Oil 1,200 1,200 mg PO DAILY 11/14/16 02/19/17 mg Fish Oil] Furosemide [Lasix] 20 mg PO DAILY 11/14/16 02/19/17 GlipiZIDE XL (24 HR) [Glucotrol XL] 5 mg PO QAM 11/14/16 02/19/17 LevETIRAcetam [Keppra Xr] 1,000 mg PO HS 11/14/16 02/19/17 Losartan [Cozaar] 25 mg PO DAILY 11/14/16 02/19/17 Nitroglycerin [Nitrostat] 0.4 mg SL Q5M PRN 11/14/16 02/19/17 Oxycodone HCl/Acetaminophen 1 tab PO BID PRN 11/14/16 02/19/17 [Percocet 5-325 mg Tablet] Potassium Chloride [Klor-Con 10] 10 meq PO DAILY 11/14/16 02/19/17 Rosuvastatin [Crestor] 20 mg PO HS 11/14/16 02/19/17 Sertraline [Zoloft] 100 mg PO BID 11/14/16 02/19/17 Topiramate [Topamax] 200 mg PO TID 11/14/16 02/19/17 Sitagliptin Phosphate [Januvia] 50 mg PO DAILY 01/09/17 02/19/17 Isosorbide MONOnitrate (24 HR) 30 mg PO DAILY 02/19/17 02/19/17 [Imdur] Previous Rx's Medication Instructions Recorded Amoxicillin/Clavulanate [Augmentin] 875 mg PO BIDWM #18 tablet 02/21/17 Calcium Carbonate [Tums] 1,000 mg PO QID tab.chew 02/21/17 Furosemide [Lasix] 10 mg PO DAILY PRN #10 tablet 02/21/17 Isosorbide MONOnitrate (24 HR) 60 mg PO DAILY #30 tab.er.24h 02/21/17 [Imdur] Nicotine Patch [Nicoderm] 21 mg TD DAILY #14 patch.td24 02/21/17 Allergies Allergy/AdvReac Type Severity Reaction Status Date / Time Zolpidem [From Ambien] Allergy Severe Fainting Verified 07/20/17 13:46 atorvastatin [From Lipitor] Allergy Diarrhea Verified 07/20/17 13:46 doxycycline Allergy Rash Verified 07/20/17 13:46 lisinopril Allergy Cough Verified 07/20/17 13:46 metformin Allergy Rash Verified 07/20/17 13:46 All systems ED: reviewed and negative except as stated. Constitutional: Denies: fever, chills, weakness, weight change Eyes: Denies: eye pain, eye discharge, vision change ENT ED: Denies: ear pain, throat pain, dental pain, hearing loss, epistaxis, congestion, dysphagia Cardiovascular: Reports: chest pain. Denies: palpitations, dyspnea on exertion , edema, syncope Respiratory: Denies: cough, dyspnea, wheezes, hemoptysis, stridor Gastrointestinal: Denies: abdominal pain, nausea, vomiting, diarrhea, constipation, hematemesis, melena, hematochezia Genitourinary: Denies: dysuria, frequency, hematuria, discharge Musculoskeletal: Denies: back pain, neck pain, arthralgia, myalgia Integumentary: Denies: rash, abrasion, lesions Neurological: Denies: headache, weakness, numbness, paresthesias, confusion, abnormal gait, vertigo Psychiatric: Denies: anxiety, depression, suicidal thoughts, homicidal thoughts , auditory hallucinations, visual hallucinations Endocrine: Denies: fatigue Hematological/Lymphatic: Denies: easy bleeding, easy bruising Allergic/Immunologic: Denies: facial swelling, urticaria Chest Pain PMH - Past Medical History Medical history: Reports: arthritis, CHF (hx of systolic dysfunction with recovered EF), coronary artery disease, diabetes, fibromyalgia, GERD, hyperlipidemia, hypertension, myocardial infarction, SVT Surgical history: Reports: angioplasty/stent Psychiatric history: Reports: no psych history - Social History Smoking Status: Current every day smoker Alcohol use: Reports: rarely Drug use: Reports: none Physical Exam - General Limitations: no limitations General appearance: alert, in no apparent distress - Head Head exam: atraumatic, normocephalic, normal inspection - Eye Eye exam: Present: normal appearance, PERRL, EOMI - ENT ENT exam: normal exam, normal oropharynx, mucous membranes moist - Neck Neck exam: Present: normal inspection, full ROM, trachea midline - Chest Chest inspection: Present: normal inspection, symmetric chest wall rise - Respiratory Respiratory exam: Present: normal lung sounds bilaterally - Cardiovascular Cardiovascular exam: Present: regular rate, normal rhythm, normal heart sounds - Abdominal Exam Abdominal exam: Present: soft, Non-Tender. Absent: tenderness, distention, guarding, rebound, rigidity - Extremities Exam Extremities exam: Present: normal inspection, full ROM. Absent: tenderness, pedal edema - Expanded Lower Extremity Exam Neurovascular/Tendon exam: Absent: motor deficit, sensory deficit, tendon deficit Gait: observed and normal, not tested/not observed - Back Exam Back exam: Present: normal inspection, full ROM. Absent: tenderness - Neurological Exam Neurological exam: Present: alert, oriented X3 - Psychiatric Psychiatric exam: Present: normal affect, normal mood - Skin Skin exam: Present: warm, dry, intact, normal color Course - Reevaluation(s) Reevaluation #1: 47-year-old with a history of [place] 2 with 3 stents who comes in complaining of chest pain into her jaw and face that she says is similar to the pain she had prior to requiring stents. EKG shows no acute change initial troponins negative chest x-rays negative patient will be admitted for further evaluation and treatment. Time: 14:30 - Consultations Consultation #1: Discussed with , admit. Time: 14:44 Vital Signs Temperature 98.0 F 07/20/17 13:37 Pulse Rate 82 07/20/17 13:37 Respiratory Rate 18 07/20/17 13:37 Blood Pressure 128/89 07/20/17 13:37 O2 Sat by Pulse Oximetry 97 07/20/17 13:37 Temperature 98.0 F 07/20/17 13:37 Pulse Rate 78 07/20/17 14:18 Respiratory Rate 20 07/20/17 14:18 Blood Pressure 124/73 07/20/17 14:18 O2 Sat by Pulse Oximetry 97 07/20/17 14:18 Oxygen Delivery Oxygen Delivery Room Air Chest Pain - Lab Data Lab results reviewed: Yes I reviewed the patient's lab results. Result diagrams: 07/20/17 13:53 07/20/17 13:53 Lab Results 07/20/17 07/20/17 07/20/17 Range/Units 13:53 13:53 13:53 WBC 8.8 (4.3-11.1) K/mcL RBC 5.39 H (3.82-4.97) M/mcL Hgb 14.3 (11.5-15.4) g/dL Hct 43.3 (35.3-44.9) % MCV 80.3 L (83.0-100.0) fL MCH 26.5 L (28.0-33.3) pg MCHC 33.0 (31.6-35.5) g/dL RDW 14.3 (11.5-14.5) % Plt Count 261 (140-400) K/mcL MPV 9.6 (9.4-12.4) fL Immature Gran % 0.6 (0-4) % Seg Neutrophils % 64.4 % Lymphocytes % 27.6 % Monocytes % 4.1 % Eosinophils % 2.6 % Basophils % 0.7 % Neutrophils # 5.7 (1.6-8.9) K/mcL Lymphocytes # 2.4 (0.6-4.6) K/mcL Monocytes # 0.4 (0.0-1.3) K/mcL Eosinophils # 0.2 (0.0-0.6) K/mcL Basophils # 0.1 (0.0-0.2) K/mcL Immature Plt Fraction 2.4 (1.1-6.1) % PT 10.6 (9.4-12.1) Seconds INR 1.0 APTT 32.0 (26.0-36.0) Seconds Sodium 136 (136-145) mEq/L Potassium 4.3 (3.5-4.5) mEq/L Chloride 104 (98-109) mEq/L Carbon Dioxide 23 (19-29) mEq/L BUN 12 (7-20) mg/dL Creatinine 0.82 (0.57-1.11) mg/dL Est GFR ( Amer) > 60 (> 60) Est GFR (Non-Af Amer) > 60 (> 60) BUN/Creatinine Ratio 15 (6-26) Glucose 275 H (70-99) mg/dL Calculated Osmolality 292 (280-300) Calcium 9.1 (8.6-10.8) mg/dL Troponin I (0-0.03) ng/mL 07/20/17 Range/Units 13:53 WBC (4.3-11.1) K/mcL RBC (3.82-4.97) M/mcL Hgb (11.5-15.4) g/dL Hct (35.3-44.9) % MCV (83.0-100.0) fL MCH (28.0-33.3) pg MCHC (31.6-35.5) g/dL RDW (11.5-14.5) % Plt Count (140-400) K/mcL MPV (9.4-12.4) fL Immature Gran % (0-4) % Seg Neutrophils % % Lymphocytes % % Monocytes % % Eosinophils % % Basophils % % Neutrophils # (1.6-8.9) K/mcL Lymphocytes # (0.6-4.6) K/mcL Monocytes # (0.0-1.3) K/mcL Eosinophils # (0.0-0.6) K/mcL Basophils # (0.0-0.2) K/mcL Immature Plt Fraction (1.1-6.1) % PT (9.4-12.1) Seconds INR APTT (26.0-36.0) Seconds Sodium (136-145) mEq/L Potassium (3.5-4.5) mEq/L Chloride (98-109) mEq/L Carbon Dioxide (19-29) mEq/L BUN (7-20) mg/dL Creatinine (0.57-1.11) mg/dL Est GFR ( Amer) (> 60) Est GFR (Non-Af Amer) (> 60) BUN/Creatinine Ratio (6-26) Glucose (70-99) mg/dL Calculated Osmolality (280-300) Calcium (8.6-10.8) mg/dL Troponin I 0.00 (0-0.03) ng/mL - Radiology Data Radiology results reviewed: Yes I reviewed the patient's radiology results. Chest X-Ray 07/20/17 13:40 IMPRESSION: No acute cardiopulmonary process. D/ / 07/20/2017 14:24:50 Bob Ventura MD / bcarter Interpreting Provider: Bob Ventura MD - EKG Data EKG attestation: Yes I reviewed and interpreted this EKG. EKG shows normal: sinus rhythm Rate: normal Rhythm: NSR Interpretation: no acute changes Heart Score - Score History: Highly Suspicious EKG: Normal Age: 45-65 Risk Factors: Equal/Greater than 3 risk factor or history of atherosclerotic disease Troponin: Less than normal limit HEART Score Total: 5
[2017-07-20 14:04] LABS: Basophils # 0.1 K/mcL (0.0-0.2); Basophils % 0.7 %; Eosinophils # 0.2 K/mcL (0.0-0.6); Eosinophils % 2.6 %; Hematocrit 43.3 % (35.3-44.9); Hemoglobin 14.3 g/dL (11.5-15.4); Immature Granulocytes % 0.6 % (0-4); Immature Platelets 2.4 % (1.1-6.1); Lymphocytes # 2.4 K/mcL (0.6-4.6); Lymphocytes % 27.6 %; Mean Corpuscular Hemoglobin 26.5 pg (28.0-33.3); Mean Corpuscular Volume 80.3 fL (83.0-100.0); Mean Platelet Volume 9.6 fL (9.4-12.4); Monocytes # 0.4 K/mcL (0.0-1.3); Monocytes % 4.1 %; Neutrophils # 5.7 K/mcL (1.6-8.9); Platelet Count 261 K/mcL (140-400); Red Blood Count 5.39 M/mcL (3.82-4.97); Red Cell Distribution Width 14.3 % (11.5-14.5); Segmented Neutrophils % 64.4 %
[2017-07-20 14:12] LABS: Prothrombin Time 10.6 Seconds (9.4-12.1)
[2017-07-20 14:15] LABS: BUN/Creatinine Ratio 15 (6-26); Blood Urea Nitrogen 12 mg/dL (7-20); Calcium 9.1 mg/dL (8.6-10.8); Carbon Dioxide 23 mEq/L (19-29); Chloride 104 mEq/L (98-109); Glucose 275 mg/dL (70-99); Osmolality,Calculated 292 (280-300); Potassium 4.3 mEq/L (3.5-4.5); Sodium 136 mEq/L (136-145); eGFR For African Americans > 60 (> 60); eGFR For Non-African Americans > 60 (> 60)
[2017-07-20] MEDS ORDERED: Acetaminophen 325 MG TABLET PO PRN (15:32)
[2017-07-20] MEDS ORDERED: Ondansetron 4 MG/2 ML VIAL IVP PRN (15:32)
[2017-07-20] MEDS ORDERED: *HR* HYDROcodone/Acet 5/325 mg TABLET PO PRN (15:32)
[2017-07-20] MEDS ORDERED: Naloxone 0.4 MG/ML INJ IVP PRN (15:32)
[2017-07-20] MEDS ORDERED: D5% in Water 1,000 ML IVC PRN (15:38)
[2017-07-20] MEDS ORDERED: Dextrose Gel 15 GM PO PRN ×2 (15:38)
[2017-07-20] MEDS ORDERED: *HR* Dextrose 50 % in Water (Syg) 50 ML SYRINGE IVP PRN (15:38)
--- NOTE | 2017-07-20 15:45 | Internal Med History&Physical ---
Date of Encounter: 07/20/17 Time of Encounter: 15:20 Assessment and Plan (1) Chest pain Current visit: Yes Status: Acute will place the pt into Tele for observation Reviewed CXR by myself - No acute infiltrates EKG - NSR, No ST elevation / depression noticed So far negative troponin place her on tele check serial troponin she did have normal stress test in 01/2017 in Nov before that It looks like she does have chronic angina pain..will inc Imdur to 60mg for now counseled to quit smoking placed on nicotine patch will get another stress test in AM Will consult Cardiology in AM depending on how her CP progress resumed home med ASA, Plavix, Coreg and Imdur Qualifiers: Chest pain type: unspecified Qualified Code(s): R07.9 - Chest pain, unspecified (2) Coronary artery disease Current visit: No Status: Chronic resumed all home meds see above plan too Qualifiers: Coronary Disease-Associated Artery/Lesion type: [place] artery [place] vs. transplanted heart: [place] heart Associated angina: with other forms of angina Qualified Code(s): I25.118 - Atherosclerotic heart disease of [place] coronary artery with other forms of angina pectoris (3) Diabetes mellitus Current visit: No Status: Chronic placed her on ISS Check HbA1C in Am Qualifiers: Diabetes mellitus type: type 2 Diabetes mellitus complication status: with other specified complication Diabetes mellitus fci insulin use: without superintendent [employer] use Qualified Code(s): E11.69 - Type 2 diabetes mellitus with other specified complication (4) Essential hypertension Current visit: No Status: Chronic Stable with home meds will resume all home meds (5) Hyperlipidemia Current visit: No Status: Chronic resumed home med Crestor Qualifiers: Hyperlipidemia type: mixed hyperlipidemia Qualified Code(s): E78.2 - Mixed hyperlipidemia (6) Bipolar disorder Current visit: No Status: Chronic Resumed all her home meds Qualifiers: Active/Remission status: remission status unspecified Qualified Code(s): F31.9 - Bipolar disorder, unspecified (7) Tobacco dependence Current visit: Yes Status: Acute Counseled to quit smoking on Nicotine patch Internal Medicine - H&P: HPI Chief complaint: Chest pain Admitted From: Emergency Dept Plans for Post Hospital Care: Home History of present illness: Ms. Dominguez is a 47 year old female with known history of HTN, HLD, DM2, Anxiety , Chronic tobacco dependence , CAD , previous [place] 2 and 3 stents last being October 2016 comes to our ER today with complaining of chest pain located in Left chest wall region and radiating to her Left arm. Her pain is more like pressure and squeezing type. She also mentioned from last one she had some intermittent chest pain. States she was vacuuming yesterday and developed chest pain she was diaphoretic radiation to the jaw. Patient has risk factors of smoking, diabetes, hypertension, hypercholesterolemia, family history. Patient states this pain is similar to what she had prior to requiring stents. Past Med Surg Social Fam HX - Past Medical History Medical history: arthritis, CHF (hx of systolic dysfunction with recovered EF), coronary artery disease, diabetes, fibromyalgia, GERD, hyperlipidemia, hypertension, myocardial infarction, SVT Psychiatric history: no psych history - Past Surgical History Surgical History: angioplasty/stent - Social History Smoking Status: Current every day smoker Smokeless Tobacco Status: No Alcohol use: rarely Drug use: none - Family History Father Adopted: No Family Member Ethnicity: Non- Living Status: Hx Family Cardiac Disorders: Yes Hx Family Respiratory Disorders: No Hx Family Cancer: No Hx Family GI Disorders: No Hx Family Endocrine Disorder: No Hx Family Neuromuscular Disorders: No Hx Family Neurologic Disorders: No Hx Family HEENT Disorders: No Hx Family Autoimmune Disorders: No Mother Family Member Ethnicity: Non- Living Status: Still Living Hx Family Cardiac Disorders: No Hx Family Respiratory Disorders: No Hx Family Cancer: Yes (thyroid) Hx Family GI Disorders: No Hx Family Endocrine Disorder: No Hx Family Neuromuscular Disorders: No Hx Family Neurologic Disorders: No Hx Family HEENT Disorders: No Hx Family Autoimmune Disorders: No Internal Medicine - H&P: Meds ALPRAZolam [Xanax 1 MG Tablet] 1 mg PO QID PRN 11/14/16 [History] Aspirin 81 mg PO DAILY 11/14/16 [History] Carvedilol [Coreg] 6.25 mg PO BID 11/14/16 [History] Clopidogrel [Plavix] 75 mg PO DAILY 11/14/16 [History] DULoxetine [Cymbalta] 30 mg PO DAILY 11/14/16 [History] Ergocalciferol (VITAMIN D2) [Vitamin D2] 50,000 unit PO SA 11/14/16 [History] Fish Oil/Dha/Epa [Fish Oil 1,200 mg Fish Oil] 1,200 mg PO DAILY 11/14/16 [ History] Furosemide [Lasix] 20 mg PO DAILY 11/14/16 [History] GlipiZIDE XL (24 HR) [Glucotrol XL] 5 mg PO QAM 11/14/16 [History] LevETIRAcetam [Keppra Xr] 1,000 mg PO HS 11/14/16 [History] Losartan [Cozaar] 25 mg PO DAILY 11/14/16 [History] Nitroglycerin [Nitrostat] 0.4 mg SL Q5M PRN 11/14/16 [History] Oxycodone HCl/Acetaminophen [Percocet 5-325 mg Tablet] 1 tab PO BID PRN [History] Potassium Chloride [Klor-Con 10] 10 meq PO DAILY 11/14/16 [History] Rosuvastatin [Crestor] 20 mg PO HS 11/14/16 [History] Sertraline [Zoloft] 100 mg PO BID 11/14/16 [History] Topiramate [Topamax] 200 mg PO TID 11/14/16 [History] Sitagliptin Phosphate [Januvia] 50 mg PO DAILY 01/09/17 [History] Isosorbide MONOnitrate (24 HR) [Imdur] 30 mg PO DAILY 02/19/17 [History] Amoxicillin/Clavulanate [Augmentin] 875 mg PO BIDWM #18 tablet 02/21/17 [Rx] Calcium Carbonate [Tums] 1,000 mg PO QID tab.chew 02/21/17 [Rx] Furosemide [Lasix] 10 mg PO DAILY PRN #10 tablet 02/21/17 [Rx] Isosorbide MONOnitrate (24 HR) [Imdur] 60 mg PO DAILY #30 tab.er.24h 02/21/17 [ Rx] Nicotine Patch [Nicoderm] 21 mg TD DAILY #14 patch.td24 02/21/17 [Rx] 3 Allergy/AdvReac Type Severity Reaction Status Date / Time Zolpidem [From Ambien] Allergy Severe Fainting Verified 07/20/17 13:46 atorvastatin [From Lipitor] Allergy Diarrhea Verified 07/20/17 13:46 doxycycline Allergy Rash Verified 07/20/17 13:46 lisinopril Allergy Cough Verified 07/20/17 13:46 metformin Allergy Rash Verified 07/20/17 13:46 All Systems PM: A 10-system review of systems was performed and is negative for pertinent findings except as documented above in the HPI. Review of systems: All the systems are reviewed everything is benign except the systems and symptoms I mentioned in the history of present illness - Constitutional Vitals: Temp Pulse Resp BP Pulse Ox 98.0 F 78 20 124/73 97 07/20/17 13:37 07/20/17 14:18 07/20/17 14:18 07/20/17 14:18 07/20/17 14:18 General appearance: Present: A&O X 3, no acute distress - Head Head exam: Present: atraumatic, normal inspection - Respiratory Respiratory exam: Present: decreased breath sounds, wheezes (mild). Absent: respiratory distress, rhonchi - Cardiovascular Cardiovascular exam: Present: RRR, +S1, +S2. Absent: systolic murmur - GI/Abdominal GI/Abdominal exam: Present: normal bowel sounds, soft. Absent: rebound, rigid, tenderness - Extremities Exam Extremities exam: Absent: calf tenderness, pedal edema, tenderness - Neurological Exam Neurological exam: Present: alert, oriented X3 - Psychiatric Psychiatric exam: Present: normal affect, normal mood Internal Med - H&P Results - Labs CBC & Chem 7: 07/20/17 13:53 07/20/17 13:53 Labs: Short CBC 07/20/17 Range/Units 13:53 WBC 8.8 (4.3-11.1) K/mcL Hgb 14.3 (11.5-15.4) g/dL Hct 43.3 (35.3-44.9) % Plt Count 261 (140-400) K/mcL Neutrophils # 5.7 (1.6-8.9) K/mcL BMP 07/20/17 13:53 Sodium 136 Potassium 4.3 Chloride 104 Carbon Dioxide 23 BUN 12 Creatinine 0.82 Glucose 275 H Calcium 9.1 Cardiac Enzymes 07/20/17 Range/Units 13:53 Troponin I 0.00 (0-0.03) ng/mL - Impressions ITS Impressions Chest X-Ray 07/20/17 13:40 IMPRESSION: No acute cardiopulmonary process. D/ / 07/20/2017 14:24:50 Bob Ventura MD / jc Interpreting Provider: Bob Ventura MD
[2017-07-20] MEDS: Insulin LISPRO 300 UNITS/3 ML VIAL SQ SCH (17:39)
[2017-07-20] MEDS: *HR* Morphine 2 MG/ML SYRINGE IVP PRN (20:51)
[2017-07-21 01:19] LABS: Chol/HDL Ratio 7.4 (0-4.9)
[2017-07-21] MEDS: *HR* Morphine 2 MG/ML SYRINGE IVP PRN (08:34)
[2017-07-21] MEDS ORDERED: ALPRAZolam 1 MG TABLET PO PRN (10:58)
[2017-07-21] MEDS ORDERED: Nitroglycerin 0.4 MG TAB.SUBL SL PRN (10:58)
[2017-07-21] MEDS ORDERED: levETIRAcetam 250 MG TABLET PO SCH (11:00)
[2017-07-21] MEDS ORDERED: Aspirin 81 MG TAB.CHEW PO SCH (11:00)
--- NOTE | 2017-07-21 11:02 | Internal Med Progress Note ---
Date of Encounter: 07/21/17 Time of Encounter: 11:08 - Assessment and plan (1) Coronary artery disease Current Visit: No Status: Chronic Assessment and plan: hx STEMI and most recently NSTEMI. [facility] 11/15/16: with patent pLAD stent, successful PTCA/PRICILLA to mLAD stenosis; otherwise mild, non-obstructive CAD. (30% pLCx, 30% pRCA). TTE 11/15/16: EF 55-60%, normal wall motion. Now with chest pain and facial numbness similar to previous presentation. Serial troponins negative. EKG without acute ST changes. Hold on further diagnostic testing. Keep NPO, Cardiology consulted Qualifiers: Coronary Disease-Associated Artery/Lesion type: [place] artery [place] vs. transplanted heart: [place] heart Associated angina: with other forms of angina Qualified Code(s): I25.118 - Atherosclerotic heart disease of [place] coronary artery with other forms of angina pectoris (2) Diabetes mellitus Current Visit: No Status: Chronic Assessment and plan: per hx. Control unknown. Holding home oral hypoglycemics. Add SSI, monitor blood sugar and titrate PRN Qualifiers: Diabetes mellitus type: type 2 Diabetes mellitus complication status: without complication Diabetes mellitus buttermilk drier operator insulin use: without buttermilk drier operator use Qualified Code(s): E11.9 - Type 2 diabetes mellitus without complications (3) Essential hypertension Current Visit: No Status: Chronic Assessment and plan: per hx. BP variable but acceptable. Cont home BP medications. Monitor BP and titrate PRN (4) Tobacco dependence Current Visit: Yes Status: Acute Assessment and plan: current smoker; cessation advised (5) DVT prophylaxis Current Visit: Yes Status: Acute - Subjective Interval history: Seen and examined at bedside; she is still complaining of chest pain and face numbness. Describes pain as a tightness, nothing makes better or worse, says sensation comes and goes. Says she had associated SOB and diaphoresis at home, denies now. - Constitutional Vitals: Temp Pulse Resp BP Pulse Ox 98.2 F 81 17 143/80 97 07/21/17 07:31 07/21/17 07:31 07/21/17 07:31 07/21/17 07:31 07/21/17 07:31 General appearance: Present: A&O X 3, no acute distress - Head Head exam: Present: atraumatic, normocephalic - Eye Eye exam: Present: PERRL, conjuntiva pink, sclera anicteric Pupils: Present: PERRL - Neck Neck exam general surgery: Present: supple, trachea midline. Absent: lymphadenopathy - Respiratory Respiratory exam: Present: CTAB. Absent: accessory muscle use, rales, rhonchi, wheezes - Cardiovascular Cardiovascular exam: Present: RRR, +S1, +S2. Absent: diastolic murmur, gallop, rubs, systolic murmur Additional comments: tele: NSR - GI/Abdominal GI/Abdominal exam: Present: normal bowel sounds, soft, no peritoneal signs. Absent: distended, tenderness - Extremities Exam Extremities exam: Present: warm, radial pulses palpable and symmetrical. Absent : calf tenderness, cyanotic, pedal edema - Neurological Exam Neurological exam: Present: CN II-XII intact, oriented X3, no focal deficits. Absent: pronater drift, facial droop, speech deficit - Skin Skin exam: Present: dry, intact Internal Medicine: Result - Labs CBC & Chem 7: 07/20/17 13:53 07/20/17 13:53 Labs: Cardiac Enzymes 07/20/17 07/21/17 Range/Units 20:14 00:35 Troponin I 0.00 0.00 (0-0.03) ng/mL - ABG Interpretation ABG results: PT/INR, D-dimer PT 10.6 Seconds (9.4-12.1) 07/20/17 13:53 Consult Discharge Plan - Plan Referrals: Francisco Dugan MD [Primary Care Provider] -
[2017-07-21 11:14] VITALS: BP 135/84
--- NOTE | 2017-07-21 12:24 | Electrocardiograph Report ---
[place] [id number] Test Date: 2017-07-20 Pat Name: Kassie Dominguez Department: 102 Room: 3B Gender: F Maintenance Repairer: Aj : 1970 Requested By: Marc Barber Order Number: [id number] Reading MD: Lyn Garcia Measurements Intervals [place] Rate: 83 P: 56 DE: 165 QRS: 76 QRSD: 90 T: 32 QT: 366 QTc: 406 Interpretive Statements SINUS RHYTHM Electronically Signed On 07-21-2017 12:22:32 EDT by Lyn Garcia
[2017-07-21] MEDS: Insulin LISPRO 300 UNITS/3 ML VIAL SQ SCH ×2 (12:59→14:55)
[2017-07-21] MEDS ORDERED: Isosorbide MONOnitrate (24 HR) 30 MG TAB.ER.24H PO SCH (13:15)
[2017-07-21] MEDS ORDERED: Furosemide 20 MG TABLET PO SCH (13:15)
[2017-07-21] MEDS ORDERED: *HR* Heparin 5,000 UNIT/ML VIAL SQ SCH (14:00)
--- NOTE | 2017-07-21 14:52 | Cardiology Consult Note ---
Date of Encounter: 07/21/17 Time of Encounter: 14:50 Assessment and Plan (1) Chest pain Current Visit: Yes Status: Acute Per Cardiology: Atypical chest squeezing occurring at rest and radiating around to her back-- slightly improved with position changes today. Admitted for bilateral sinus pain and radiation to her neck-- she reports these as anginal equivalents at time of her past MIs. Troponins 0.003. Last heart catheterization October 2016 showed mid LAD 90% in-stent restenosis and is status post PTCA/drug-eluting stent, had otherwise nonobstructive CAD with proximal circumflex 30% and proximal RCA 30% lesions. Had negative nuclear stress test for perfusion ischemia or infarct January 2017. Last echo October 2016 showed EF 55-60%. Again, patient was leaving AMA at time of evaluation and was very frustrated with "nothing being done all day" and "if medical management is my choice then I will medically manage at home". I had lengthy discussion today with patient and sister regarding titration of long-acting nitrates vs. potential repeat limited echo vs. potential repeat ischemic evaluation. Recommendations to continue to monitor and follow up as outpatient, however patient unsure if she will follow-up. Patient adamant that she was leaving today and did not wish to proceed with any further interventions. She denied wanting to titrate Imdur. Patient and sister vocalized desire to leave and dismissed me from the room today d/t being "ready to go home". Discussed with primary service and DC appears to be pending. Will discuss with Dr. Sin. Qualifiers: Chest pain type: unspecified Qualified Code(s): R07.9 - Chest pain, unspecified (2) Coronary artery disease Current Visit: No Status: Chronic Per Cardiology: Last cath as above. On aspirin, Plavix, statin, beta leonel, and long-acting nitrate. Qualifiers: Coronary Disease-Associated Artery/Lesion type: [place] artery Tribe vs. transplanted heart: [place] heart Associated angina: with other forms of angina Qualified Code(s): I25.118 - Atherosclerotic heart disease of [place] coronary artery with other forms of angina pectoris (3) Tobacco dependence Current Visit: Yes Status: Chronic Per Cardiology: Continues to smoke. Smoking cessation not even addressed today d/t her extremely agitated state. Discussion w patient/family: The assessment and plan as outlined above was discussed with the patient and/or family members who expressed understanding and agreement. All questions were answered. Thank you for involving us in the care of your patient. Please call with any questions. Cardiology will sign off since patient leaving AMA vs DC and patient does not desire further testing and/or management at this time. I made multiple attempts at service recovery today including sincerely apologizing for her frustrations. History of Present Illness Consult date: 07/21/17 Consult reason: CP Chief complaint: Sinus and neck pain, CP History of present illness: Ms. Dominguez is a 47 year old female with a relevant past medical history of CAD, previous cardiomyopathy with recovery, hypertension, hyperlipidemia, diabetes mellitus type 2, nicotine abuse, GERD. Cardiology consult for bilateral sinus pain with radiation to her neck and chest pain. Patient seen today in process of leaving AMA. Patient very agitated and adamant that she is leaving and frustrated because "nothing has been done all day". Patient and sister eventually calmed down and did allow me to complete consult. She reports she presented due to bilateral sinus pressure and pain for the past one week with radiation to her bilateral neck-- she reports symptoms similar to what she experienced with her past heart attacks. She does report increased fatigue over the past week. Does report recent cough with nonproductive sputum. Denies any fever, nausea, vomiting, diarrhea. Denies any palpitations. Denies any active bleeding or blood loss. Reports during hospitalization did feel somewhat chilled. She denies any fevers. She also reports midsternal back chest tightness/squeezing has been continuous and somewhat improved with position changes. She confirms last heart catheterization October 2016 at [facility]. Was supposed to follow-up with cardiology a few weeks ago as outpatient , however missed her appointment. She reports compliance with medications. Reports she has not utilized nitroglycerin glycerin pills. Continues to smoke about one pack per day. Past Med Surg Social Fam HX - Past Medical History Attestation: Yes The following information was validated with the patient. Source: patient, old records reviewed, obtained from family Medical history: arthritis, CHF, coronary artery disease, diabetes, fibromyalgia , GERD, hyperlipidemia, hypertension, myocardial infarction, SVT Psychiatric history: anxiety, panic disorder - Past Surgical History Surgical History: angioplasty/stent - Social History Smoking Status: Current every day smoker Packs per day: 1 Smokeless Tobacco Status: No Alcohol use: rarely Drug use: none - Family History Father Adopted: No Family Member Ethnicity: Non- Living Status: Hx Family Cardiac Disorders: Yes Hx Family Respiratory Disorders: No Hx Family Cancer: No Hx Family GI Disorders: No Hx Family Endocrine Disorder: No Hx Family Neuromuscular Disorders: No Hx Family Neurologic Disorders: No Hx Family HEENT Disorders: No Hx Family Autoimmune Disorders: No Mother Family Member Ethnicity: Non- Living Status: Still Living Hx Family Cardiac Disorders: No Hx Family Respiratory Disorders: No Hx Family Cancer: Yes (thyroid) Hx Family GI Disorders: No Hx Family Endocrine Disorder: No Hx Family Neuromuscular Disorders: No Hx Family Neurologic Disorders: No Hx Family HEENT Disorders: No Hx Family Autoimmune Disorders: No Medications and Allergies ALPRAZolam [Xanax 1 MG Tablet] 1 mg PO QID PRN 11/14/16 [History] Aspirin 81 mg PO DAILY 11/14/16 [History] Carvedilol [Coreg] 6.25 mg PO BID 11/14/16 [History] Clopidogrel [Plavix] 75 mg PO DAILY 11/14/16 [History] DULoxetine [Cymbalta] 30 mg PO DAILY 11/14/16 [History] Ergocalciferol (VITAMIN D2) [Vitamin D2] 50,000 unit PO SA 11/14/16 [History] Fish Oil/Dha/Epa [Fish Oil 1,200 mg Fish Oil] 1,200 mg PO DAILY 11/14/16 [ History] Furosemide [Lasix] 20 mg PO DAILY 11/14/16 [History] GlipiZIDE XL (24 HR) [Glucotrol XL] 5 mg PO QAM 11/14/16 [History] LevETIRAcetam [Keppra Xr] 1,000 mg PO HS 11/14/16 [History] Nitroglycerin [Nitrostat] 0.4 mg SL AD PRN 11/14/16 [History] Oxycodone HCl/Acetaminophen [Percocet 5-325 mg Tablet] 1 tab PO BID PRN [History] Potassium Chloride [Klor-Con 10] 10 meq PO DAILY 11/14/16 [History] Rosuvastatin [Crestor] 40 mg PO HS 11/14/16 [History] Sertraline [Zoloft] 100 mg PO BID 11/14/16 [History] Topiramate [Topamax] 200 mg PO TID 11/14/16 [History] Sitagliptin Phosphate [Januvia] 50 mg PO DAILY 01/09/17 [History] Isosorbide MONOnitrate (24 HR) [Imdur] 30 mg PO DAILY 02/19/17 [History] LevETIRAcetam [Keppra Xr] 500 mg PO QAM 07/20/17 [History] Sitagliptin Phosphate [Januvia] 50 mg PO DAILY 07/20/17 [History] 3 Allergy/AdvReac Type Severity Reaction Status Date / Time Zolpidem [From Ambien] Allergy Severe Fainting Verified 07/20/17 13:46 atorvastatin [From Lipitor] Allergy Diarrhea Verified 07/20/17 13:46 doxycycline Allergy Rash Verified 07/20/17 13:46 lisinopril Allergy Cough Verified 07/20/17 13:46 metformin Allergy Rash Verified 07/20/17 13:46 All Systems Review: A 10-system review of systems was performed and is negative for pertinent findings except as documented above in the HPI. - Constitutional Constitutional: fatigue - Cardiovascular Cardiovascular: as per HPI, chest pain at rest - Respiratory Respiratory: cough - Musculoskeletal Musculoskeletal: other (bilateral sinus and jaw pain) Physical Examination Vital Signs, Last 4 Hours Temp Pulse Resp BP Pulse Ox 07/21/17 11:13 98.0 F 59 16 135/84 97 General: Conversant, No Apparent Distress HEENT: Atraumatic, Normocephaly, Mucus Membranes Moist Cardiac: Reg Rate and Rhythm, Normal S1 and S2, No Murmur Lungs: Normal Breath Sounds, No Wheeze, Rales, Rhonchi Neuro: Alert and responsive, No focal deficits noted, Other (agitated, prepping to leave AMA) Skin: No rashes noted on visualized skin Musculoskeletal: Other (chest wall and back tightness on exam, somewhat improved with movement) Extremities: No Clubbing, No Cyanosis, No Edema, Normal Pulses Results 07/20/17 13:53 07/20/17 13:53 Lab Results Laboratory Tests 07/20/17 07/20/17 07/20/17 13:53 13:53 20:14 INR 1.0 Troponin I 0.00 0.00 LDL Cholesterol, Calc 07/21/17 07/21/17 00:35 00:35 INR Troponin I 0.00 LDL Cholesterol, Calc 154 H ITS Impressions Chest X-Ray 07/20/17 13:40 IMPRESSION: No acute cardiopulmonary process. D/ / 07/20/2017 14:24:50 Bob Ventura MD / bcarter Interpreting Provider: Bob Ventura MD Active Medications Acetaminophen (Tylenol) 650 mg PO Q6HR PRN PRN Reason: Mild Pain (1-3) Stop: 01/19/18 15:33 Hydrocodone Bitart/Acetaminophen ([place] 5-325 Mg) 1 tab PO Q4HR PRN PRN Reason: Moderate Pain (4-6) Stop: 01/19/18 15:33 Last Admin: 07/21/17 09:42 Dose: 1 tab Alprazolam (Xanax) 1 mg PO QID PRN; Protocol PRN Reason: Anxiety Stop: 01/20/18 10:59 Aspirin (Aspirin) 81 mg PO DAILY [facility] Stop: 01/20/18 11:01 Last Admin: 07/21/17 13:48 Dose: 81 mg Carvedilol (Coreg) 6.25 mg PO BID CAIO PRN Reason: Protocol Stop: 01/20/18 13:16 Last Admin: 07/21/17 13:48 Dose: 6.25 mg Clopidogrel Bisulfate (Plavix) 75 mg PO DAILY [facility] Stop: 01/20/18 13:16 Last Admin: 07/21/17 13:49 Dose: 75 mg Dextrose/Water (Dextrose 50% (Syg)) 25 ml IVP AD PRN PRN Reason: Hypoglycemia Stop: 01/19/18 15:39 Docusate Sodium (Colace) 100 mg PO BID PRN PRN Reason: Constipation Stop: 01/19/18 15:33 Duloxetine HCl (Cymbalta) 30 mg PO DAILY [facility] Stop: 01/20/18 13:05 Last Admin: 07/21/17 13:48 Dose: 30 mg Ergocalciferol (Drisdol (50,000 Unit)) 50,000 unit PO SA [facility] Stop: 01/25/18 09:01 Furosemide (Lasix) 20 mg PO DAILY [facility] Stop: 01/20/18 13:16 Last Admin: 07/21/17 13:48 Dose: 20 mg Glucagon (Glucagen) 1 mg IM ONCE PRN PRN Reason: Hypoglycemia Stop: 01/19/18 15:39 Glucose (Gluctose) 15 gm PO ONCE PRN PRN Reason: Hypoglycemia Stop: 01/19/18 15:39 Glucose (Gluctose) 30 gm PO ONCE PRN PRN Reason: Hypoglycemia Stop: 01/19/18 15:39 Heparin Sodium (Porcine) (Heparin) 5,000 unit SQ Q8HCO CAIO Stop: 01/20/18 14:01 Dextrose (Dextrose 5%) 1,000 mls @ 100 mls/hr IVC .Q10H PRN PRN Reason: HYPOGLYCEMIA Stop: 01/19/18 15:39 Insulin Human Lispro (Humalog) 0 units SQ TIDAC CAIO PRN Reason: Protocol Stop: 01/19/18 16:31 Last Admin: 07/21/17 12:59 Dose: Not Given Isosorbide Mononitrate (Imdur) 30 mg PO DAILY [facility] Stop: 01/20/18 13:16 Last Admin: 07/21/17 13:49 Dose: 30 mg Morphine Sulfate (Morphine Sulfate) 2 mg IVP Q4HR PRN PRN Reason: Severe Pain (7-10) Stop: 01/19/18 15:33 Last Admin: 07/21/17 08:34 Dose: 2 mg Naloxone HCl (Narcan) 0.4 mg IVP Q2MIN PRN PRN Reason: Opioid Reversal Stop: 01/19/18 15:33 Nitroglycerin (Nitroglycerin) 0.4 mg SL AD PRN PRN Reason: Chest Pain Stop: 01/20/18 10:59 Ondansetron HCl (Zofran) 4 mg IVP Q6HR PRN PRN Reason: Nausea And Vomiting Stop: 01/19/18 15:33 Pharmacy Profile Note (Patient Taking Own Medication) 0 each PO DAILY CAIO Stop: 01/21/18 09:01 Pharmacy Profile Note (Patient Taking Own Medication) 0 each PO HS CAIO Stop: 01/20/18 21:01 Pharmacy Profile Note (Patient Taking Own Medication) 0 each PO QAM CAIO Stop: 01/20/18 11:01 Rosuvastatin Calcium (Crestor) 40 mg PO HS CAIO Stop: 01/20/18 21:01 Sertraline HCl (Zoloft) 100 mg PO BID CAIO Stop: 01/20/18 14:01 Topiramate (Topamax) 200 mg PO TID [facility] Stop: 01/20/18 15:01 - Imaging and Cardiology Chest Xray: report reviewed Echo: report reviewed Cardiac cath: report reviewed - EKG Interpretation EKG results cardiology: personally reviewed, normal ECG, sinus rhythm, no diagnostic ischemia, other (SR on tele) Consult Discharge Plan - Plan Referrals: Francisco Dugan MD [Primary Care Provider] -
[2017-07-21] MEDS ORDERED: Topiramate 100 MG TABLET PO SCH (15:00)
--- NOTE | 2017-07-21 15:56 | Discharge Summary ---
Date of Encounter: 07/21/17 Time of Encounter: 15:54 - Discharge Diagnosis (1) Coronary artery disease Priority: Primary Status: Chronic Comments: hx STEMI and most recently NSTEMI. [facility] 11/15/16: with patent pLAD stent, successful PTCA/PRICILLA to mLAD stenosis; otherwise mild, non-obstructive CAD. (30% pLCx, 30% pRCA). [facility] 11/15/16: EF 55-60%, normal wall motion. Presented with chest pain and facial numbness similar to previous presentation. Serial troponins negative. EKG without acute ST changes. Evaluated by Cardiology who recommended medical management with outpatient follow-up. Nitrate increased at discharge Qualifiers: Qualified Code(s): I25.118 - Atherosclerotic heart disease of [place] coronary artery with other forms of angina pectoris (2) Diabetes mellitus Priority: Primary Status: Chronic Comments: per hx. Cont home oral hypoglycemics. Can follow-up with PCP Qualifiers: Qualified Code(s): E11.9 - Type 2 diabetes mellitus without complications (3) Essential hypertension Priority: Primary Status: Chronic Comments: per hx. BP controlled. Cont home BP medications (4) Tobacco dependence Priority: Primary Status: Acute Comments: smoking cessation advised - Discharge Medications Prescriptions: Isosorbide MONOnitrate (24 HR) [Imdur] 60 mg PO DAILY #30 tab.er.24h Home Medications: ALPRAZolam [Xanax 1 MG Tablet] 1 mg PO QID PRN 11/14/16 [History] Aspirin 81 mg PO DAILY 11/14/16 [History] Carvedilol [Coreg] 6.25 mg PO BID 11/14/16 [History] Clopidogrel [Plavix] 75 mg PO DAILY 11/14/16 [History] DULoxetine [Cymbalta] 30 mg PO DAILY 11/14/16 [History] Ergocalciferol (VITAMIN D2) [Vitamin D2] 50,000 unit PO SA 11/14/16 [History] Fish Oil/Dha/Epa [Fish Oil 1,200 mg Fish Oil] 1,200 mg PO DAILY 11/14/16 [ History] Furosemide [Lasix] 20 mg PO DAILY 11/14/16 [History] GlipiZIDE XL (24 HR) [Glucotrol XL] 5 mg PO QAM 11/14/16 [History] LevETIRAcetam [Keppra Xr] 1,000 mg PO HS 11/14/16 [History] Nitroglycerin [Nitrostat] 0.4 mg SL AD PRN 11/14/16 [History] Oxycodone HCl/Acetaminophen [Percocet 5-325 mg Tablet] 1 tab PO BID PRN [History] Potassium Chloride [Klor-Con 10] 10 meq PO DAILY 11/14/16 [History] Rosuvastatin [Crestor] 40 mg PO HS 11/14/16 [History] Sertraline [Zoloft] 100 mg PO BID 11/14/16 [History] Topiramate [Topamax] 200 mg PO TID 11/14/16 [History] Sitagliptin Phosphate [Januvia] 50 mg PO DAILY 01/09/17 [History] Isosorbide MONOnitrate (24 HR) [Imdur] 30 mg PO DAILY 02/19/17 [History] LevETIRAcetam [Keppra Xr] 500 mg PO QAM 07/20/17 [History] Sitagliptin Phosphate [Januvia] 50 mg PO DAILY 07/20/17 [History] Isosorbide MONOnitrate (24 HR) [Imdur] 60 mg PO DAILY #30 tab.er.24h 07/21/17 [ Rx] Allergies/Adverse Reactions: 3 Allergy/AdvReac Type Severity Reaction Status Date / Time Zolpidem [From Ambien] Allergy Severe Fainting Verified 07/20/17 13:46 atorvastatin [From Lipitor] Allergy Diarrhea Verified 07/20/17 13:46 doxycycline Allergy Rash Verified 07/20/17 13:46 lisinopril Allergy Cough Verified 07/20/17 13:46 metformin Allergy Rash Verified 07/20/17 13:46 Date of admission: 07/20/17 16:11 Primary care physician: Francisco Dugan MD Discharging clinician: Liudmila Ruiz Anticipated date of discharge: 07/21/17 - Patient Status Disposition: Home, Self-Care Functional capacity at discharge: independent ambulation Overall status at discharge: patient is back to baseline - Discharge Instructions Follow Up With: Francisco Dugan MD [Primary Care Provider] - 07/24/17 9:45 am - Diet and Activity Activity: increase activity as tolerated Diet: advance to your usual diet, diabetic diet, low fat, low cholesterol Interval History: See progress note from 07/21 Hospital course: Ms. Dominguez is a 47 year old female - Time Spent with Patient Total time spent providing and/or coordinating discharge services: - Constitutional Vitals: Temp Pulse Resp BP Pulse Ox 98.0 F 59 16 135/84 97 07/21/17 11:13 07/21/17 11:13 07/21/17 11:13 07/21/17 11:13 07/21/17 11:13 General appearance: Present: A&O X 3, no acute distress - Head Head exam: Present: atraumatic, normocephalic - Eye Eye exam: Present: PERRL, conjuntiva pink, sclera anicteric Pupils: Present: PERRL - Neck Neck exam general surgery: Present: supple, trachea midline. Absent: lymphadenopathy - Respiratory Respiratory exam: Present: CTAB. Absent: accessory muscle use, rales, rhonchi, wheezes - Cardiovascular Cardiovascular exam: Present: RRR, +S1, +S2. Absent: diastolic murmur, gallop, rubs, systolic murmur - GI/Abdominal GI/Abdominal exam: Present: normal bowel sounds, soft, no peritoneal signs. Absent: distended, tenderness - Extremities Exam Extremities exam: Present: warm, radial pulses palpable and symmetrical. Absent : calf tenderness, cyanotic, pedal edema - Neurological Exam Neurological exam: Present: CN II-XII intact, oriented X3, no focal deficits. Absent: pronater drift, facial droop, speech deficit - Skin Skin exam: Present: dry, intact
[2017-07-21] MEDS ORDERED: KEPPRA 1000 MG PO SCH (21:00)
[2017-07-22] MEDS ORDERED: Furosemide 20 MG TABLET PO SCH (09:00)
[2017-07-22] MEDS ORDERED: Isosorbide MONOnitrate (24 HR) 30 MG TAB.ER.24H PO SCH (09:00)
[2017-07-22] MEDS ORDERED: KEPPRA 500 MG PO SCH (09:00)
== END 2017-07-21 16:00 | disposition home or self-care (01) ==
LOC: EMEROO 13:32 → 3BNU 13:32
PROVIDERS: ADMIT Family Medicine; ATTEND Registered Nurse